=== PATIENT | female | born 1940 | race Caucasian/White ===

== ENCOUNTER 2016-12-17 20:04 | Emergency (ER) | payer OTHER ==
[2016-12-17 20:16] VITALS: TEMP 99.4; BMI 36.8
[2016-12-17] MEDS ORDERED: CLOPIDOGREL BISULFATE 300 MG TABLET PO ONE ×2 (20:20→20:44)
[2016-12-17] MEDS ORDERED: ASPIRIN 81 MG CHEWABLE TABLETS ONE (20:20)
[2016-12-17] MEDS ORDERED: ASPIRIN 81 MG CHEWABLE TABLETS PO ONE (20:20)
[2016-12-17] MEDS ORDERED: CLOPIDOGREL BISULFATE 300 MG TABLET ONE ×2 (20:21→20:45)
[2016-12-17] MEDS ORDERED: METOPROLOL TARTRATE 5 MG/5 ML VIAL IVPUSH ONE (20:29)
[2016-12-17] MEDS ORDERED: NITROGLYCERIN SUBLINGUAL 1/150 0.4 MG TAB SL ONE (20:29)
[2016-12-17] MEDS ORDERED: METOPROLOL TARTRATE 5 MG/5 ML VIAL ONE (20:31)
[2016-12-17 20:35] LABS: BASOPHIL 0.2 % (0-2.0); EOSINOPHIL 0.2 % (0-4.5); MCH 27.8 pg (25.7-33.7); MCHC 33.2 g/dl (32.0-36.0); MEAN CELL VOLUME 83.8 fl (80-96); MEAN PLT VOLUME 9.2 fl (7.5-11.1); NEUTROPHILS 79.4 % (42.8-82.8); PLATELET COUNT 169 K/MM3 (134-434); RDW 13.4 % (11.6-15.6); WHITE BLOOD COUNT 12.1 K/mm3 (4.0-10.0)
--- NOTE | 2016-12-17 20:41 | PDOC ---
History of Present Illness - General History Source: Patient Exam Limitations: No Limitations - History of Present Illness Initial Comments: 12/17/16 20:41 Patient is a 76 year old female with a significant past medical history of DM( diagnosed last month) and thyroid disease, who presents to the ED with complaint of chest pain since yesterday. Patient states that the chest pain has worsened since 1400 hour today, progressively worsening since yesterday. Patient reports associated SOB and pain radiating to her shoulders and lower back. Patient notes that the pain is 7-8/10 in severity. As per patient the her last bowel movement was today an hour before presenting to the ED and was normal. She denies fever, chills, nausea, vomiting, diarrhea, hematochezia or constipation. Allergy - penicillin <Morena Kearns - Last Filed: 12/17/16 20:41> <Kylah Salas - Last Filed: 12/18/16 03:43> - General Chief Complaint: Chest Pain Stated Complaint: CHEST PAIN Time Seen by Provider: 12/17/16 20:18 Past History <Morena Kearns - Last Filed: 12/17/16 20:41> - Past Medical History Diabetes: Yes HTN: Yes Thyroid Disease: Yes (Hypothyroidism) Other medical history: hx ovarian ca (2006) - Immunization History Immunization Up to Date: Yes - Psycho/Social/Smoking Cessation Hx Suicidal Ideation: No Smoking History: Never smoked Information on smoking cessation initiated: No Hx Alcohol Use: No Drug/Substance Use Hx: No Substance Use Type: None <Kylah Salas - Last Filed: 12/18/16 03:43> - Past Medical History Allergies/Adverse Reactions: Allergies Allergy/AdvReac Type Severity Reaction Status Date / Time Penicillins Allergy Verified 12/17/16 20:09 Home Medications: Ambulatory Orders Amlodipine Bes/Olmesartan Med [Amlodipine-Olmesartan 5-20 mg] 1 each PO DAILY Levothyroxine [Synthroid -] 50 mcg PO DAILY 12/17/16 Metformin Xr [Glucophage *Xr* -] 750 mg PO DAILY 12/17/16 Review of Systems - Review of Systems Able to Perform ROS?: Yes Comments:: 12/17/16 20:41 GENERAL/CONSTITUTIONAL: No fever or chills. No weakness. HEAD, EYES, EARS, NOSE AND THROAT: No change in vision. No ear pain or discharge. No sore throat. CARDIOVASCULAR: +chest pain, +shortness of breath. RESPIRATORY: No cough, wheezing, or hemoptysis. GASTROINTESTINAL: No nausea, vomiting, diarrhea or constipation. GENITOURINARY: No dysuria, frequency, or change in urination. MUSCULOSKELETAL: No joint or muscle swelling or pain. No neck or back pain. SKIN: No rash NEUROLOGIC: No headache, vertigo, loss of consciousness, or change in strength/ sensation. ENDOCRINE: No increased thirst. No abnormal weight change. HEMATOLOGIC/LYMPHATIC: No anemia, easy bleeding, or history of blood clots. ALLERGIC/IMMUNOLOGIC: No hives or skin allergy. <Morena Kearns - Last Filed: 12/17/16 20:41> *Physical Exam - Vital Signs Last Vital Signs Temp Pulse Resp BP Pulse Ox 99.4 F 79 27 H 154/72 100 12/17/16 20:09 12/17/16 20:40 12/17/16 20:40 12/17/16 20:40 12/17/16 20:40 - Physical Exam Comments: 12/17/16 20:42 GENERAL: Awake, alert, and fully oriented, +in moderate distress HEAD: No signs of trauma EYES: PERRLA, EOMI, sclera anicteric, conjunctiva clear ENT: Auricles normal inspection, hearing grossly normal, nares patent, oropharynx clear without exudates. Moist mucosa NECK: Normal ROM, supple, no lymphadenopathy, JVD, or masses LUNGS: Breath sounds equal, clear to auscultation bilaterally. No wheezes, and no crackles HEART: Regular rate and rhythm, normal S1 and S2, no murmurs, rubs or gallops ABDOMEN: Soft, nontender, normoactive bowel sounds. No guarding, no rebound. No masses EXTREMITIES: Normal range of motion, no edema. No clubbing or cyanosis. No cords, erythema, or tenderness NEUROLOGICAL: Cranial nerves II through XII grossly intact. Normal speech, normal gait SKIN: Warm, Dry, normal turgor, no rashes or lesions noted. <Morena Kearns - Last Filed: 12/17/16 20:41> - Vital Signs Last Vital Signs Temp Pulse Resp BP Pulse Ox 99.4 F 97 H 19 187/82 96 12/17/16 20:09 12/17/16 20:29 12/17/16 20:09 12/17/16 20:29 12/17/16 20:09 <Kylha Salas - Last Filed: 12/18/16 03:43> Heart Score/ECG Review #1 12/17/16 20:42 ECG was reviewed by Dr. Salas Impression: sinus rhythm wit 1st degree AV block with occasional premature ventricular complexes Possible left atrial enlargement Inferior infarct, possible acute Acute [place]/ STEMI Consider right ventricular involvement in acute inferior infarct Vent. rate 99 bpm VA interval 222 ms QRS duration 78 ms QT/QTc 354/454 ms <Morena Kearns - Last Filed: 12/17/16 20:41> ED Treatment Course - LABORATORY CBC & Chemistry Diagram: 12/17/16 20:30 12/17/16 20:30 - Medications Given in the ED: ED Medications Discontinued Medications Generic Name Dose Route Start Last Admin Trade Name Freq PRN Reason Stop Dose Admin Aspirin 162 mg 12/17/16 20:20 12/17/16 20:20 Asa - PO 12/17/16 20:21 162 mg ONCE ONE Administration Clopidogrel Bisulfate 300 mg 12/17/16 20:20 12/17/16 20:20 Plavix - PO 12/17/16 20:21 300 mg ONCE ONE Administration Metoprolol Tartrate 5 mg 12/17/16 20:29 12/17/16 20:29 Lopressor Injection - IVPUSH 12/17/16 20:30 5 mg ONCE ONE Administration Nitroglycerin 0.4 mg 12/17/16 20:29 12/17/16 20:29 Nitrostat - SL 12/17/16 20:30 0.4 mg ONCE ONE Administration <Morena Kearns - Last Filed: 12/17/16 20:41> - LABORATORY CBC & Chemistry Diagram: 12/17/16 20:30 12/17/16 20:30 - RADIOLOGY Radiology Studies Ordered: Category Date Time Status CXRPORT [CHEST X-RAY PORTABLE*] [RAD] Stat Radiology 12/17/16 20:19 Taken - Medications Given in the ED: ED Medications Discontinued Medications Generic Name Dose Route Start Last Admin Trade Name Freq PRN Reason Stop Dose Admin Aspirin 162 mg 12/17/16 20:20 12/17/16 20:20 Asa - PO 12/17/16 20:21 162 mg ONCE ONE Administration Clopidogrel Bisulfate 300 mg 12/17/16 20:20 12/17/16 20:20 Plavix - PO 12/17/16 20:21 300 mg ONCE ONE Administration Metoprolol Tartrate 5 mg 12/17/16 20:29 12/17/16 20:29 Lopressor Injection - IVPUSH 12/17/16 20:30 5 mg ONCE ONE Administration Nitroglycerin 0.4 mg 12/17/16 20:29 12/17/16 20:29 Nitrostat - SL 12/17/16 20:30 0.4 mg ONCE ONE Administration <Kylah Salas - Last Filed: 12/18/16 03:43> Medical Decision Making - Medical Decision Making 12/18/16 03:39 Pt comes with STEMI; I immediately called [facility]; pt was accepted by Dr. Rodriguez after he saw the EKG; pt was given asa, plavix and IV bolus heparin. SHe also received SL NTG x 1 and 5mg metoprolol IVP. Her BP and HR came down to 150 systolic and 79 respectively. [facility] arranged for transport and she was sent to the [facility]; EMS delay in getting patient out - otherwise our paper work and treatment was done expeditiously. Son signed patient's paperwork <Kylah Salas - Last Filed: 12/18/16 03:43> *DC/Admit/Observation/Transfer - Attestations Scribe Attestion: 12/17/16 20:44 Documentation prepared by MAGDALENA Ga, acting as bio medical technician for Kylah Salas MD. <Morena Kearns - Last Filed: 12/17/16 20:41> - Transfer to Acute Care Facility Receiving Facility: [facility] <Kylah Salas - Last Filed: 12/18/16 03:43> Diagnosis at time of Disposition: STEMI (ST elevation myocardial infarction) - Discharge Dispostion Disposition: TRANSFER ACUTE CARE/OTHER HOSP - Referrals Referrals: Dank Hatfield MD [Primary Care Provider] -
[2016-12-17] MEDS ORDERED: HEPARIN NA (PORCINE) 5,000 UNITS/ML 1ML VIAL IVPUSH PRN (20:43)
[2016-12-17] MEDS ORDERED: HEPARIN NA (PORCINE) 5,000 UNITS/ML 1ML VIAL ONE (20:45)
[2016-12-17 20:49] LABS: INR 1.03 (0.82-1.09); PROTHROMBIN TIME (PATIENT) 11.3 SEC (9.98-11.88)
[2016-12-17 20:51] LABS: ACTIVATED PTT 37.7 SECONDS (26.9-34.4)
[2016-12-17 21:24] VITALS: BP 154/72; PULSE 79
[2016-12-17 21:30] LABS: ALBUMIN 3.7 g/dl (3.4-5.0); ANION GAP 12 (8-16); CALCIUM 8.9 mg/dL (8.5-10.1); CO2 24 mmol/L (21-32); CREATININE 0.9 mg/dL (0.55-1.02); GLUCOSE,RANDOM 233 mg/dL (74-106); SGOT/AST 103 U/L (15-37); SGPT/ALT 38 U/L (12-78)
[2016-12-17 21:40] LABS: ALK PHOS 114 U/L (45-117); BILIRUBIN,TOTAL 0.3 mg/dL (0.2-1.0); TOT PROT 7.4 g/dl (6.4-8.2)
[2016-12-17 21:42] LABS: TROPONIN I 9.53 ng/ml (0.00-0.05)
--- NOTE | 2016-12-19 12:54 | EKG ---
Test Reason : Blood Pressure : / mmHG Vent. Rate : 099 BPM Atrial Rate : 099 BPM P-R Int : 222 ms QRS Dur : 078 ms QT Int : 354 ms P-R-T Axes : 073 -28 060 degrees QTc Int : 454 ms SINUS RHYTHM WITH 1ST DEGREE A-V BLOCK WITH OCCASIONAL PREMATURE VENTRICULAR COMPLEXES POSSIBLE LEFT ATRIAL ENLARGEMENT INFERIOR INFARCT , POSSIBLY ACUTE ACUTE SC / STEMI ABNORMAL ECG NO PREVIOUS ECGS AVAILABLE CLINICAL CORRELATION IS RECOMMENDED Confirmed by DELFINA PRASAD, PAULO ([id number]) on 12/19/2016 12:54:09 PM Referred By: Confirmed By:PAULO MATHIS MD
== END 2016-12-17 21:10 | disposition short-term general hospital (02) ==
LOC: JER 20:04
PROC: 3E033GC Introduction of Other Therapeutic Substance into Peripheral Vein, Percutaneous Approach (ICD-10-PCS; principal; 2016-12-17)
PROC: 3E033GC Introduction of Other Therapeutic Substance into Peripheral Vein, Percutaneous Approach (ICD-10-PCS; 2016-12-17)
DX: I21.19 ST elevation (STEMI) myocardial infarction involving other coronary artery of inferior wall (principal); I10 Essential (primary) hypertension; E11.9 Type 2 diabetes mellitus without complications; Z79.84 Long term (current) use of oral hypoglycemic drugs; E03.9 Hypothyroidism, unspecified; Z85.43 Personal history of malignant neoplasm of ovary
CPT/HCPCS: 36415; 71010-TC; 80053; 82550; 82553; 84484; 85025; 85610; 85730; 93005; 93010; 96374; 96375; 99285-25; J1644

== ENCOUNTER 2017-01-26 13:23 | Observation (INO) | payer OTHER ==
[2017-01-26 13:29] VITALS: BMI 35.3
[2017-01-26] MEDS ORDERED: ONDANSETRON 4 MG/2 ML VIAL IVPUSH ONE ×2 (17:32→23:31)
[2017-01-26] MEDS ORDERED: SODIUM CHLORIDE 500 ML IV STA (17:32)
[2017-01-26] MEDS ORDERED: ACETAMINOPHEN 325 MG TABLET (FP) PO ONE (17:33)
[2017-01-26] MEDS ORDERED: ONDANSETRON 4 MG/2 ML VIAL ONE ×2 (17:48→23:42)
[2017-01-26] MEDS ORDERED: ACETAMINOPHEN 325 MG TABLET (FP) ONE (17:48)
--- NOTE | 2017-01-26 17:51 | PDOC ---
History of Present Illness - General Chief Complaint: Nausea/Vomiting Stated Complaint: VOMITING Time Seen by Provider: 01/26/17 17:03 History Source: Patient, Family - History of Present Illness Timing/Duration: other Associated Symptoms: reports: fever/chills, malaise, nausea/vomiting, weakness. denies: chest pain, cough, diaphoresis, headaches, shortness of breath Past History - Past Medical History Allergies/Adverse Reactions: Allergies Allergy/AdvReac Type Severity Reaction Status Date / Time Penicillins Allergy Verified 01/26/17 13:27 Home Medications: Ambulatory Orders Metformin Xr [Glucophage *Xr* -] 750 mg PO BID 12/17/16 Aspirin [ASA -] 81 mg PO DAILY 01/26/17 Atorvastatin Ca [Lipitor] 80 mg PO HS 01/26/17 Carvedilol [Coreg -] 6.25 mg PO BID 01/26/17 Clopidogrel Bisulfate [Plavix -] 75 mg PO DAILY 01/26/17 Enalapril Maleate [Vasotec -] 2.5 mg PO DAILY 01/26/17 Nitrofurantoin Macrocrystal [Nitrofurantoin] 100 mg PO BID 01/26/17 Omeprazole 40 mg PO DAILY 01/26/17 Cardiac Disorders: Yes (ID) Diabetes: Yes HTN: Yes Thyroid Disease: Yes (Hypothyroidism) - Surgical History Cardiac Surgery: Yes (stents) - Immunization History Immunization Up to Date: Yes - Psycho/Social/Smoking Cessation Hx Suicidal Ideation: No Smoking History: Never smoked Hx Alcohol Use: No Drug/Substance Use Hx: No Substance Use Type: None Review of Systems - Review of Systems Constitutional: Yes: Chills, Fever Respiratory: No: Cough, Shortness of Breath Cardiac (ROS): No: Chest Pain, Lightheadedness, Palpitations ABD/GI: Yes: Nausea, Vomiting. No: Constipated, Diarrhea : No: Dysuria, Flank Pain, Hematuria *Physical Exam - Vital Signs Last Vital Signs Temp Pulse Resp BP Pulse Ox 102.4 F H 93 H 20 160/85 95 01/26/17 13:27 01/26/17 13:27 01/26/17 13:27 01/26/17 13:27 01/26/17 13:27 - Physical Exam General Appearance: Yes: Appropriately Dressed. No: Apparent Distress HEENT: positive: Normal Voice Neck: positive: Supple Respiratory/Chest: positive: Lungs Clear, Normal Breath Sounds. negative: Respiratory Distress Cardiovascular: positive: Regular Rate, S1, S2 Gastrointestinal/Abdominal: positive: Soft. negative: Tender Musculoskeletal: negative: CVA Tenderness Extremity: positive: Normal Inspection Integumentary: positive: Dry, Warm Neurologic: positive: Fully Oriented, Alert, Normal Mood/Affect ED Treatment Course - LABORATORY CBC & Chemistry Diagram: 01/27/17 06:30 01/27/17 06:30 - RADIOLOGY Radiology Studies Ordered: Category Date Time Status CHEST X-RAY PORTABLE* [RAD] Stat Radiology 01/26/17 17:31 Ordered Medical Decision Making - Medical Decision Making 01/26/17 17:46 76 yo F, hypothyroid, DM, CAD w/ stents x 3, last places a month ago at [facility], p/w intermittent n/v that has been present since stents were placed and more frequent now. Is able to tolerate po for the most part. Pt states she thinks one of her new cardiac meds may be causing her sxs but has not f/u with her cardiology to discuss issue. Now c/o malaise, weakness and ? fever. No CP, SOB, cough, abd pain, change in BM or dysuria see exam Intermittent n/v x ~1 month No acute GI sxs and no CP or SOB R/o infectious given fever at triage vs metabolic vs cardiac Febrile at triage w/ unremarkable exam otherwise -ekg -labs -love-cx -IVF -tylenol -admission likely 01/26/17 17:52 *DC/Admit/Observation/Transfer Diagnosis at time of Disposition: Fever, Intractable nausea and vomiting - Discharge Dispostion Condition at time of disposition: Guarded
[2017-01-26 18:29] LABS: BASOPHIL 0.2 % (0-2.0); EOSINOPHIL 1.2 % (0-4.5); MCH 27.9 pg (25.7-33.7); MCHC 33.3 g/dl (32.0-36.0); MEAN CELL VOLUME 83.8 fl (80-96); MEAN PLT VOLUME 9.4 fl (7.5-11.1); NEUTROPHILS 76.9 % (42.8-82.8); PLATELET COUNT 166 K/MM3 (134-434); RDW 14.1 % (11.6-15.6); WHITE BLOOD COUNT 7.6 K/mm3 (4.0-10.0)
[2017-01-26 18:46] LABS: URINE APPEARANCE CLEAR; URINE BILIRUBIN NEGATIVE (NEGATIVE); URINE BLOOD NEGATIVE (NEGATIVE); URINE COLOR YELLOW; URINE GLUCOSE (UA) NEGATIVE (NEGATIVE); URINE KETONE NEGATIVE (NEGATIVE); URINE LEUK ESTERASE NEGATIVE (NEGATIVE); URINE NITRITE NEGATIVE (NEGATIVE); URINE UROBILINOGEN NEGATIVE E.U./dl (0.2-1.0)
[2017-01-26 19:20] LABS: URINE PROTEIN 1+ (NEGATIVE)
[2017-01-26 20:38] LABS: URINE BACTERIA RARE /hpf (NONE SEEN); URINE HYALINE CAST 1 /lpf; URINE MUCUS FEW; URINE RBC 1 /hpf (0-3); URINE WBC 3 /hpf (3-5)
[2017-01-26 21:33] LABS: ALBUMIN 3.2 g/dl (3.4-5.0); BILIRUBIN,TOTAL 0.6 mg/dL (0.2-1.0); CALCIUM 8.3 mg/dL (8.5-10.1); COCKROFT - GAULT 60.911; TOT PROT 6.2 g/dl (6.4-8.2)
--- NOTE | 2017-01-26 21:48 | PDOC ---
*Physical Exam - Vital Signs Last Vital Signs Temp Pulse Resp BP Pulse Ox 99.8 F H 72 18 149/66 98 01/26/17 19:23 01/26/17 19:23 01/26/17 19:23 01/26/17 19:23 01/26/17 19:23 - Physical Exam Comments: 01/26/17 21:49 76-year-old female with a history of DM, hypothyroidism, CAD with stents 3 which were placed at [facility] 1 month ago. Presents to the emergency department with her daughter complaining of intractable nausea/vomiting 4 weeks , worse over the past 2 weeks. Patient awoke today feeling extremely weak and tired with a subjective fever. Patient denies any headache, dizziness, lightheadedness, neck pains, back pains, chest pain, shortness of breath, abdominal pains, urinary symptoms. ED Treatment Course - LABORATORY CBC & Chemistry Diagram: 01/26/17 18:00 01/26/17 20:42 - ADDITIONAL ORDERS Additional order review: Laboratory Results 01/26/17 01/26/17 01/26/17 20:42 18:00 18:00 Sodium 138 Potassium 3.9 Chloride 103 Carbon Dioxide 27 Anion Gap 8 BUN 24 H Creatinine 1.0 Creat Clearance w eGFR 54.05 Random Glucose 136 H D Lactic Acid 1.9 Calcium 8.3 L Total Bilirubin 0.6 D AST 19 D ALT 21 D Alkaline Phosphatase 98 Creatine Kinase Troponin I B-Natriuretic Peptide 2996.08 H Total Protein 6.2 L Albumin 3.2 L Urine Color Urine Appearance Urine pH Ur Specific [place] Urine Protein Urine Glucose (UA) Urine Ketones Urine Blood Urine Nitrite Urine Bilirubin Urine Urobilinogen Ur Leukocyte Esterase Urine RBC Urine WBC Ur Epithelial Cells Urine Bacteria Hyaline Casts Urine Mucus 01/26/17 01/26/17 18:00 18:00 Sodium Cancelled Potassium Cancelled Chloride Cancelled Carbon Dioxide Cancelled Anion Gap Cancelled BUN Cancelled Creatinine Cancelled Creat Clearance w eGFR Cancelled Random Glucose Cancelled Lactic Acid Calcium Cancelled Total Bilirubin Cancelled AST Cancelled ALT Cancelled Alkaline Phosphatase Cancelled Creatine Kinase Cancelled Troponin I Cancelled B-Natriuretic Peptide Total Protein Cancelled Albumin Cancelled Urine Color Yellow Urine Appearance Clear Urine pH 5.0 Ur Specific [place] 1.015 Urine Protein 1+ H Urine Glucose (UA) Negative Urine Ketones Negative Urine Blood Negative Urine Nitrite Negative Urine Bilirubin Negative Urine Urobilinogen Negative Ur Leukocyte Esterase Negative Urine RBC 1 Urine WBC 3 Ur Epithelial Cells Rare Urine Bacteria Rare Hyaline Casts 1 Urine Mucus Few 01/26/17 20:43 Influenza Types A,B Antigen (PEGGY) - Final Nasopharyngeal Swab - Final 01/26/17 18:00 RBC 4.82 MCV 83.8 MCHC 33.3 RDW 14.1 MPV 9.4 Neutrophils % 76.9 Lymphocytes % 15.7 Monocytes % 6.0 Eosinophils % 1.2 D Basophils % 0.2 - RADIOLOGY Radiology Studies Ordered: 01/26/17 21:52 CONSTITUTIONAL: + fever, chills, generalized weakness, malaise Absent:diaphoresis, loss of appetite HEENT: Absent: rhinorrhea, nasal congestion, throat pain, throat swelling, difficulty swallowing, mouth swelling, ear pain, eye pain, visual Changes CARDIOVASCULAR: Absent: chest pain, loss of consciousness, palpitations, irregular heart rate, peripheral edema RESPIRATORY: Absent: cough, shortness of breath, dyspnea with exertion, orthopnea, wheezing, stridor, hemoptysis GASTROINTESTINAL: Absent: abdominal pain, abdominal distension, nausea, vomiting, diarrhea, constipation, melena, hematochezia GENITOURINARY: Absent: dysuria, frequency, urgency, hesitancy, hematuria, flank pain, genital pain MUSCULOSKELETAL: Absent: myalgia, arthralgia, joint swelling SKIN: Absent: rash, itching, pallor HEMATOLOGIC/IMMUNOLOGIC: Absent: easy bleeding, easy bruising, lymphadenopathy, frequent infections ENDOCRINE: Absent: unexplained weight gain, unexplained weight loss, heat intolerance, cold intolerance NEUROLOGIC: Absent: headache, focal weakness or paresthesias, dizziness, unsteady gait, seizure, mental status changes, bladder or bowel incontinence PSYCHIATRIC: Absent: anxiety, depression, suicidal or homicidal ideation, hallucinations. - Medications Given in the ED: ED Medications Discontinued Medications Generic Name Dose Route Start Last Admin Trade Name Freq PRN Reason Stop Dose Admin Acetaminophen 650 mg 01/26/17 17:33 01/26/17 17:59 Tylenol - PO 01/26/17 17:34 650 mg ONCE ONE Administration Sodium Chloride 500 mls @ 1,000 mls/hr 01/26/17 17:32 01/26/17 18:10 Normal Saline - IV 01/26/17 18:01 1,000 mls/hr ASDIR STA Administration Ondansetron HCl 4 mg 01/26/17 17:32 01/26/17 18:10 Zofran Injection IVPUSH 01/26/17 17:33 4 mg ONCE ONE Administration Progress Note - Progress Note Progress Note: 2147htrs: Called DR. Hatfield [phone]/pt's PMD 2209hrs: Spoke to Dr. Hatfield/req admit to Hospitalist *DC/Admit/Observation/Transfer Diagnosis at time of Disposition: Fever Qualifiers: Fever type: unspecified Qualified Code(s): R50.9 - Fever, unspecified Intractable nausea and vomiting Qualifiers: Vomiting type: unspecified Qualified Code(s): R11.2 - Nausea with vomiting, unspecified - Discharge Dispostion Condition at time of disposition: Guarded Admit: Yes - Referrals Referrals: Dank Hatfield MD [Primary Care Provider] -
--- NOTE | 2017-01-26 22:28 | HP ---
CHIEF COMPLAINT: ' i throw up often" PCP: Dr Hatfield HISTORY OF PRESENT ILLNESS: This is a 76 yo F with PMH of [place] s/p 3 stents [facility] 1 mo ago, CAD, NIDDM2, hypothyroidism (not on meds x 1 mo) and ovarian ca s/o total hysterectomy and oophorectomy 25 yrs ago, who presents with nternittant vomiting that started immediately after cardiac cath. She had 1 stent placed 1 mo ago and another 2 placed 2 w ago at [facility]. The vomiting has become more frequent over the past 2 weeks. She has been recently having up to 3 episodes/day, NBNB, not associated with nausea or abd pain, and usually occurring shortly after PO intake. She denies diarrhea, constipation, melena, hematochezia. 1 w ago she developed pelvic pain and dysuria and was started on Nitrofurantoin (compliant). Her symptoms did not resolve and today she reports subjective fever. She was taken off her synthroid 50 d after her first cardiac cath 1 mo ago and is unsure why. She has a normal colonoscopy and endoscopy 3 yrs ago. 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), CXR (3)zofran, ivf, tylenol Recent Travel: denies PAST MEDICAL HISTORY: as above PAST SURGICAL HISTORY: as above Social History: lives at home with Smoking: denies Alcohol:denies Drugs: denies Family History: cad Allergies Penicillins Allergy (Verified 01/26/17 13:27) HOME MEDICATIONS: Home Medications Medication Instructions Recorded Metformin Xr [Glucophage *Xr* -] 750 mg PO BID 12/17/16 Aspirin [ASA -] 81 mg PO DAILY 01/26/17 Atorvastatin Ca [Lipitor] 80 mg PO HS 01/26/17 Carvedilol [Coreg -] 6.25 mg PO BID 01/26/17 Clopidogrel Bisulfate [Plavix -] 75 mg PO DAILY 01/26/17 Enalapril Maleate [Vasotec -] 2.5 mg PO DAILY 01/26/17 Nitrofurantoin Macrocrystal 100 mg PO BID 01/26/17 [Nitrofurantoin] Omeprazole 40 mg PO DAILY 01/26/17 REVIEW OF SYSTEMS CONSTITUTIONAL: Absent: chills, diaphoresis, generalized weakness, malaise, loss of appetite, weight change HEENT: Absent: rhinorrhea, nasal congestion, throat pain CARDIOVASCULAR: Absent: chest pain, syncope, palpitations, irregular heart rate, lightheadedness , peripheral edema RESPIRATORY: Absent: cough, shortness of breath, dyspnea with exertion, orthopnea, wheezing, stridor, hemoptysis GASTROINTESTINAL: Absent: abdominal pain, abdominal distension, nausea, diarrhea, constipation, melena, hematochezia GENITOURINARY: Absent: hematuria, flank pain, genital pain MUSCULOSKELETAL: Absent: myalgia, arthralgia SKIN: Absent: rash, itching, pallor HEMATOLOGIC/IMMUNOLOGIC: Absent: easy bleeding, easy bruising, lymphadenopathy, frequent infections ENDOCRINE: Absent: unexplained weight gain, unexplained weight loss, heat intolerance, cold intolerance NEUROLOGIC: Absent: headache, focal weakness or paresthesias, dizziness, unsteady gait PSYCHIATRIC: Absent: anxiety, depression PHYSICAL EXAMINATION Vital Signs - 24 hr 01/26/17 01/26/17 13:27 19:23 Temperature 102.4 F H 99.8 F H Pulse Rate 93 H Pulse Rate [ 72 Right Radial] Respiratory 20 18 Rate Blood Pressure 160/85 Blood Pressure 149/66 [Left Arm] O2 Sat by Pulse 95 98 Oximetry (%) GENERAL: Awake, alert, and fully oriented, in no acute distress. HEAD: Normal with no signs of trauma. EYES: Pupils equal, round and reactive to light, extraocular movements intact, sclera anicteric, conjunctiva clear. No lid lag. EARS, NOSE, THROAT: Ears normal, nares patent, oropharynx clear without exudates. Moist mucous membranes. NECK: supple without lymphadenopathy, JVD. + thyromegaly LUNGS: Breath sounds equal, clear to auscultation bilaterally. HEART: Regular rate and rhythm, normal S1 and S2 ABDOMEN: Soft, mildly tender suprapubic, mildy distended, normoactive bowel sounds, no guarding, no rebound, no masses. No hepatomegaly or splenomegaly. hardened tissues in lower quadrants MUSCULOSKELETAL: No CVA tenderness. UPPER EXTREMITIES: 2+ pulses, warm, well-perfused. No cyanosis. No clubbing. No peripheral edema. LOWER EXTREMITIES: 2+ pulses, warm, well-perfused. No calf tenderness. No peripheral edema. NEUROLOGICAL: Cranial nerves II-XII grossly intact. Normal speech. Normal gait. PSYCHIATRIC: Cooperative. Good eye contact. Appropriate mood and affect. SKIN: Warm, dry Laboratory Results - last 24 hr 01/26/17 01/26/17 01/26/17 18:00 18:00 18:00 WBC 7.6 D RBC 4.82 Hgb 13.4 Hct 40.4 MCV 83.8 MCHC 33.3 RDW 14.1 Plt Count 166 MPV 9.4 Neutrophils % 76.9 Lymphocytes % 15.7 Monocytes % 6.0 Eosinophils % 1.2 D Basophils % 0.2 Sodium Cancelled Potassium Cancelled Chloride Cancelled Carbon Dioxide Cancelled Anion Gap Cancelled BUN Cancelled Creatinine Cancelled Creat Clearance w eGFR Cancelled Random Glucose Cancelled Lactic Acid Calcium Cancelled Total Bilirubin Cancelled AST Cancelled ALT Cancelled Alkaline Phosphatase Cancelled Creatine Kinase Cancelled Troponin I Cancelled B-Natriuretic Peptide Total Protein Cancelled Albumin Cancelled Urine Color Yellow Urine Appearance Clear Urine pH 5.0 Ur Specific [place] 1.015 Urine Protein 1+ H Urine Glucose (UA) Negative Urine Ketones Negative Urine Blood Negative Urine Nitrite Negative Urine Bilirubin Negative Urine Urobilinogen Negative Ur Leukocyte Esterase Negative Urine RBC 1 Urine WBC 3 Ur Epithelial Cells Rare Urine Bacteria Rare Hyaline Casts 1 Urine Mucus Few 01/26/17 01/26/17 01/26/17 18:00 18:00 20:42 WBC RBC Hgb Hct MCV MCHC RDW Plt Count MPV Neutrophils % Lymphocytes % Monocytes % Eosinophils % Basophils % Sodium 138 Potassium 3.9 Chloride 103 Carbon Dioxide 27 Anion Gap 8 BUN 24 H Creatinine 1.0 Creat Clearance w eGFR 54.05 Random Glucose 136 H D Lactic Acid 1.9 Calcium 8.3 L Total Bilirubin 0.6 D AST 19 D ALT 21 D Alkaline Phosphatase 98 Creatine Kinase Troponin I B-Natriuretic Peptide 2996.08 H Total Protein 6.2 L Albumin 3.2 L Urine Color Urine Appearance Urine pH Ur Specific [place] Urine Protein Urine Glucose (UA) Urine Ketones Urine Blood Urine Nitrite Urine Bilirubin Urine Urobilinogen Ur Leukocyte Esterase Urine RBC Urine WBC Ur Epithelial Cells Urine Bacteria Hyaline Casts Urine Mucus ASSESSMENT/PLAN: This is a 76 yo F with PMH of [place] s/p 3 stents [facility] 1 mo ago, CAD, NIDDM2, hypothyroidism (not on meds x 1 mo) and ovarian ca s/o total hysterectomy and oophorectomy 25 yrs ago, who presents with nternittant vomiting that started immediately after cardiac cath. vomiting -r/o gastritis (on asa x 1 mo), obstruction (pmh abd belén) vs side effects of cardiac cath -KUB -protonix -zofran prn UTI -fever 102.4 on admission, wbc 7.6 -on macrobid for 1 w w/o symptom resolution -UA negative consistent with 1w of abx; u culture p/d -pt allergic to Pen, will give one dose levaquin CAD s/p [place] 1 mo ago s/p 3 stents -asa, plavix -coreg, vasotec -lipitor 80 hs -cardiac monitoring -call [facility] for BNP baseline (3000 here) and TTE -trop -cortisol urine Hypothyroid -may have stopped synthroid by mistake -start old dose synthroid 50 d -TFTs NIDDM -hold metformin 750 bid -bgm achs -sliding scale FEN NS @75 (slight vol depletion) lytes stable Dm diet SCDs Dispo: obs tele Problem List - Problem (1) Fever Code(s): R50.9 - FEVER, UNSPECIFIED Qualifiers: Fever type: unspecified Qualified Code(s): R50.9 - Fever, unspecified (2) Intractable nausea and vomiting Code(s): R11.2 - NAUSEA WITH VOMITING, UNSPECIFIED Qualifiers: Vomiting type: unspecified Qualified Code(s): R11.2 - Nausea with vomiting, unspecified (3) UTI (urinary tract infection) Code(s): N39.0 - URINARY TRACT INFECTION, SITE NOT SPECIFIED (4) CAD (coronary artery disease) Code(s): I25.10 - ATHSCL HEART DISEASE OF [place] CORONARY ARTERY W/O ANG PCTRS (5) History of myocardial infarction less than 8 weeks Code(s): [id number] - Visit type - Emergency Visit Emergency Visit: Yes ED Registration Date: 01/26/17 Care time: The patient presented to the Emergency Department on the above date and was hospitalized for further evaluation of their emergent condition. - New Patient This patient is new to me today: Yes Date on this admission: 01/27/17 - Critical Care Critical Care patient: No
--- NOTE | 2017-01-26 22:32 | PN ---
<Mary Lou Christianson - Last Filed: 01/26/17 22:25> Teaching Attending Note Name of Resident: Christinerizwana Beasley <Landen Cummins - Last Filed: 01/27/17 00:10> Teaching Attending Note ATTENDING PHYSICIAN STATEMENT I saw and evaluated the patient. I reviewed the resident's note and discussed the case with the resident. I agree with the resident's findings and plan as documented. SUBJECTIVE: 76 year old female presenting with her daughter, with significant past medical history of diabetes mellitus, hypothyroidism, CAD, MT with stents (x3). The stents were placed at [facility] 1 month ago after an MT. Since the stent placement the patient has been having intractable nausea with vomiting for the past 3 weeks. She notes that for the past 2 weeks the symptoms have worsened, awakening today feeling tired and complaining of a subjective fever. She currently denies chest pain, shortness of breath and lightheadedness. The patient was diagnosed last week with a UTI and was prescribed Nitrofurantoin, which she has been taking for the past week. The patient is of Syriac decent and the patient was communicating in her primary language during assessment. OBJECTIVE: GENERAL: Awake, alert, and fully oriented, in no acute distress HEENT: Atraumatic. PERRLA, EOMI. Moist mucosa. No JVD LUNGS: No distress, speaks full sentences, clear to auscultation bilaterally HEART: Regular rate and rhythm, normal S1 and S2, no murmurs, rubs or gallops, peripheral pulses normal and equal bilaterally. ABDOMEN: (+) Hypoactive bowel sounds on the left side. Distended, obese. Soft, nontender. No guarding, no rebound. No masses EXTREMITIES: Normal inspection, Normal range of motion, no edema. No clubbing or cyanosis. NEUROLOGICAL: Cranial nerves II through XII grossly intact. Normal speech, normal gait, no focal sensorimotor deficits SKIN: Warm, Dry, normal turgor, no rashes or lesions noted. She tends to use a lot of abbreviations, here are some common ones: CBCD WBC 7.6 K/mm3 (4.0-10.0) D 01/26/17 18:00 RBC 4.82 M/mm3 (3.60-5.2) 01/26/17 18:00 Hgb 13.4 GM/dL (10.7-15.3) 01/26/17 18:00 Hct 40.4 % (32.4-45.2) 01/26/17 18:00 MCV 83.8 fl (80-96) 01/26/17 18:00 MCHC 33.3 g/dl (32.0-36.0) 01/26/17 18:00 RDW 14.1 % (11.6-15.6) 01/26/17 18:00 Plt Count 166 K/MM3 (134-434) 01/26/17 18:00 MPV 9.4 fl (7.5-11.1) 01/26/17 18:00 CMP Sodium 138 mmol/L (136-145) 01/26/17 20:42 Potassium 3.9 mmol/L (3.5-5.1) 01/26/17 20:42 Chloride 103 mmol/L (98-107) 01/26/17 20:42 Carbon Dioxide 27 mmol/L (21-32) 01/26/17 20:42 Anion Gap 8 (8-16) 01/26/17 20:42 BUN 24 mg/dL (7-18) H 01/26/17 20:42 Creatinine 1.0 mg/dL (0.55-1.02) 01/26/17 20:42 Creat Clearance w eGFR 54.05 (>60) 01/26/17 20:42 Calcium 8.3 mg/dL (8.5-10.1) L 01/26/17 20:42 Total Bilirubin 0.6 mg/dL (0.2-1.0) D 01/26/17 20:42 AST 19 U/L (15-37) D 01/26/17 20:42 ALT 21 U/L (12-78) D 01/26/17 20:42 Alkaline Phosphatase 98 U/L (45-117) 01/26/17 20:42 Total Protein 6.2 g/dl (6.4-8.2) L 01/26/17 20:42 Albumin 3.2 g/dl (3.4-5.0) L 01/26/17 20:42 Chest X-Ray Reviewed by: Dr. Enrike Tovar Impression: Cardiomegaly, no acute pathology or significant change. ASSESSMENT AND PLAN Intractable vomiting, rule out acute gastroenteritis versus obstruction versus angina - NPO, advanced diet as tolerated in AM - IVF - Restart on PPIs - Zofran 4 mg Q4 hours PRN - X-ray abdomen - Trend troponins - Contact [facility] records for Echocardiogram and patients admission - Continue home meds; metformin, insulin sliding scale, ACHS Recent UTI with continuing Dysuria - Stat does of Ceftriaxone DVT proholaxyse - Heparin 5,000 units S/Q TID Documentation prepared by Landen Cummins, acting as biomedical engineering technician for Mary Lou Christianson MD.
[2017-01-26] MEDS ORDERED: CEFTRIAXONE 1,000 MG in DEXTROSE 5%-WATER - 50 ML IVPB ONE (23:30)
[2017-01-26] MEDS ORDERED: ACETAMINOPHEN 325 MG TABLET (FP) PO PRN (23:35)
[2017-01-26] MEDS ORDERED: LEVOFLOXACIN 750 MG IVPB 150 ML IVPB ONE (23:41)
[2017-01-26] MEDS ORDERED: CEFTRIAXONE 50 ML ONE (23:42)
[2017-01-27] MEDS: SODIUM CHLORIDE 1,000 ML IV SCH ×2 (00:01→03:54)
[2017-01-27] MEDS ORDERED: LEVOFLOXACIN 750 MG IVPB 150 ML IVPB ONE (00:03)
[2017-01-27 01:49] LABS: TROPONIN I 0.02 ng/ml (0.00-0.05)
[2017-01-27 02:07] LABS: FREE T4 0.85 ng/dl (0.76-1.46); THYROID STIMULATING HORMONE 2.55 uIU/ml (0.358-3.74)
[2017-01-27] MEDS: LEVOTHYROXINE NA 50 MCG TABLET (FP) PO SCH (06:32)
[2017-01-27] MEDS: INSULIN SLIDING SCALE (NOVOLOG) 1 VIAL SQ SCH ×4 (06:32→21:52)
[2017-01-27 07:50] LABS: MCH 28.6 pg (25.7-33.7); MCHC 34.3 g/dl (32.0-36.0); MEAN CELL VOLUME 83.4 fl (80-96); PLATELET COUNT 108 K/MM3 (134-434); RDW 14.2 % (11.6-15.6); WHITE BLOOD COUNT 4.7 K/mm3 (4.0-10.0)
[2017-01-27 08:11] LABS: CALCIUM 8.3 mg/dL (8.5-10.1); COCKROFT - GAULT 67.9065; CREATININE 0.9 mg/dL (0.55-1.02); PHOSPHOROUS 2.9 mg/dL (2.5-4.9)
[2017-01-27 08:24] LABS: MAGNESIUM 1.8 mg/dL (1.8-2.4)
--- NOTE | 2017-01-27 09:18 | PN ---
Physical Exam: SUBJECTIVE: Patient seen and examined Patient is comfortable with no acute distress. No nausea or vomiting. OBJECTIVE: Vital Signs Temperature 98.7 F 01/27/17 06:00 Pulse Rate 75 01/27/17 06:00 Respiratory Rate 18 01/27/17 06:00 Blood Pressure 152/69 01/27/17 06:00 O2 Sat by Pulse Oximetry (%) 97 01/27/17 03:39 GENERAL: The patient is awake, alert, and fully oriented, in no acute distress. HEAD: Normal with no signs of trauma. EYES: PERRL, extraocular movements intact, sclera anicteric, conjunctiva clear. No ptosis. ENT: Ears normal, oropharynx clear without exudates, moist mucous membranes. NECK: Trachea midline, full range of motion, supple. LUNGS: Breath sounds equal, clear to auscultation bilaterally, no wheezes, no crackles, no accessory muscle use. HEART: Regular rate and rhythm, S1, S2 psotive, Rebeca 2/6 , no rub or gallop. ABDOMEN: RUQ mild tenderness, Soft, large abdomen , no guarding, no rebound , no hepatosplenomegaly. EXTREMITIES: 2+ pulses, warm, well-perfused, no edema. NEUROLOGICAL: Cranial nerves II through XII grossly intact. Normal speech. PSYCH: Normal mood, normal affect. SKIN: Warm, dry, normal turgor, no rashes or lesions noted CBCD WBC 4.7 K/mm3 (4.0-10.0) D 01/27/17 06:30 RBC 4.25 M/mm3 (3.60-5.2) 01/27/17 06:30 Hgb 12.1 GM/dL (10.7-15.3) 01/27/17 06:30 Hct 35.4 % (32.4-45.2) 01/27/17 06:30 MCV 83.4 fl (80-96) 01/27/17 06:30 MCHC 34.3 g/dl (32.0-36.0) 01/27/17 06:30 RDW 14.2 % (11.6-15.6) 01/27/17 06:30 Plt Count 108 K/MM3 (134-434) L D 01/27/17 06:30 MPV 9.0 fl (7.5-11.1) 01/27/17 06:30 CMP Sodium 142 mmol/L (136-145) 01/27/17 06:30 Potassium 4.6 mmol/L (3.5-5.1) 01/27/17 06:30 Chloride 104 mmol/L (98-107) 01/27/17 06:30 Carbon Dioxide 29 mmol/L (21-32) 01/27/17 06:30 Anion Gap 9 (8-16) 01/27/17 06:30 BUN 17 mg/dL (7-18) D 01/27/17 06:30 Creatinine 0.9 mg/dL (0.55-1.02) 01/27/17 06:30 Creat Clearance w eGFR 54.05 (>60) 01/26/17 20:42 Random Glucose 134 mg/dL (74-106) H 01/27/17 06:30 Calcium 8.3 mg/dL (8.5-10.1) L 01/27/17 06:30 Total Bilirubin 0.6 mg/dL (0.2-1.0) D 01/26/17 20:42 AST 19 U/L (15-37) D 01/26/17 20:42 ALT 21 U/L (12-78) D 01/26/17 20:42 Alkaline Phosphatase 98 U/L (45-117) 01/26/17 20:42 Total Protein 6.2 g/dl (6.4-8.2) L 01/26/17 20:42 Albumin 3.2 g/dl (3.4-5.0) L 01/26/17 20:42 CARDIAC ENZYMES Creatine Kinase Cancelled 01/26/17 18:00 Troponin I 0.02 ng/ml (0.00-0.05) 01/26/17 20:42 Active Medications Generic Name Dose Route Start Last Admin Trade Name Freq PRN Reason Stop Dose Admin Acetaminophen 650 mg 01/26/17 23:35 Tylenol - PO Q4H PRN FEVER OR PAIN Aspirin 81 mg 01/27/17 10:00 Asa - PO DAILY [facility] Atorvastatin Calcium 80 mg 01/27/17 22:00 Lipitor - PO HS [facility] Carvedilol 6.25 mg 01/27/17 10:00 Coreg - PO BID [facility] Clopidogrel Bisulfate 75 mg 01/27/17 10:00 Plavix - PO DAILY R[facility] Enalapril Maleate 2.5 mg 01/27/17 10:00 Vasotec - PO DAILY RY Sodium Chloride 1,000 mls @ 75 mls/hr 01/26/17 23:45 01/27/17 03:54 Normal Saline - IV 75 mls/hr ASDIR RY Administration Insulin Aspart 1 vial 01/27/17 07:00 01/27/17 06:32 Novolog Vial Sliding Scale - SQ Not Given ACHS RY Protocol Levothyroxine Sodium 50 mcg 01/27/17 07:00 01/27/17 06:32 Synthroid - PO 50 mcg AM RY Administration Pantoprazole Sodium 40 mg 01/27/17 10:00 Protonix - PO DAILY RY ASSESSMENT/PLAN: This is a 76 yo F with PMH of [place] s/p 3 stents [facility] 1 mo ago, CAD, NIDDM2, hypothyroidism (not on meds x 1 mo) and ovarian ca s/o total hysterectomy and oophorectomy 25 yrs ago, who presents with intermitant vomiting that started immediately after cardiac cath. # Acute vomiting improved. # Acute UTI, presented with fever of 102.4 and wbc 7.6 s/p IV Levaquin x 1 dose UA negative negative so far. s/p 1w of abx; u culture p/d pt allergic to Pen, s/p one dose levaquin IV # CAD s/p [place] 1 mo ago s/p 3 stents on asa, plavix, coreg, vasotec,lipitor 80 hs ,BNP (3000 here) , echo. Cardio consult appreciated. elevated BNP given one dose of IV lasix. # HTN uncontrolled continue home meds, will give one dose of Lasix # Hypothyroid continue levoxyl #T2DM hold metformin 750 bid , bgm achs, sliding scale DVT Px: heparin sq Visit type - Emergency Visit Emergency Visit: Yes ED Registration Date: 01/26/17 Care time: The patient presented to the Emergency Department on the above date and was hospitalized for further evaluation of their emergent condition. - New Patient This patient is new to me today: Yes Date on this admission: 01/27/17 - Critical Care Critical Care patient: No
[2017-01-27] MEDS: ENALAPRIL MALEATE 2.5 MG TABLET (FP) PO SCH (09:36)
[2017-01-27] MEDS: CLOPIDOGREL BISULFATE 75 MG TABLET (FP) PO SCH (09:36)
[2017-01-27] MEDS: CARVEDILOL 6.25 MG TABLET (FP) PO SCH ×2 (09:36→21:52)
[2017-01-27] MEDS ORDERED: PANTOPRAZOLE 40 MG TABLET (FP) PO SCH (10:00)
[2017-01-27] MEDS ORDERED: ASPIRIN 81 MG CHEWABLE TABLETS PO SCH (10:00)
[2017-01-27] MEDS ORDERED: FUROSEMIDE 40 MG/4 ML INJECTABLE VIAL IVPB ONE (13:30)
--- NOTE | 2017-01-27 13:43 | CON.CARD ---
Consult Consult Specialty:: Cardiology Referred by:: Bill Reason for Consultation:: CAD, elevated bnp - History of Present Illness Chief Complaint: abd pain, vomiting. History of Present Illness: 76f history of htn, niddm, chol, hypothyroidism, recent STEMI at [facility] transferred to [facility] for urgent cath 12/17/16 s/p [place] to OM3, then staged [place] to LAD and PTCA of D2 12/27/16 now admitted with abdominal pain and vomiting without blood or bile. No chest pain, sob, orthopnea, pnd or edema. Exercise tolerance is good. No angina. Noted with abnormal bnp. Echo at [facility] 12/18/16 normal ef, no wall motion abnormalities, mild mr minimal tr , aortic sclerosis. No bnp was drawn at [facility]. - History Source History Provided By: Patient, Medical Record ([facility] records reviewed as well) Limitations to Obtaining History: Language Barrier - Past Medical History ...: No - Alcohol/Substance Use Hx Alcohol Use: No - Smoking History Smoking history: Never smoked Home Medications - Allergies Allergies/Adverse Reactions: Allergies Allergy/AdvReac Type Severity Reaction Status Date / Time Penicillins Allergy Verified 01/26/17 13:27 - Home Medications Home Medications: Ambulatory Orders Metformin Xr [Glucophage *Xr* -] 750 mg PO BID 12/17/16 Aspirin [ASA -] 81 mg PO DAILY 01/26/17 Atorvastatin Ca [Lipitor] 80 mg PO HS 01/26/17 Carvedilol [Coreg -] 6.25 mg PO BID 01/26/17 Clopidogrel Bisulfate [Plavix -] 75 mg PO DAILY 01/26/17 Enalapril Maleate [Vasotec -] 2.5 mg PO DAILY 01/26/17 Nitrofurantoin Macrocrystal [Nitrofurantoin] 100 mg PO BID 01/26/17 Omeprazole 40 mg PO DAILY 01/26/17 - Risk Factors Known Risk Factors: Yes: Diabetes Mellitus, Hypercholesterolemia, Hypertension, Prior AL /Emb Stroke Vital Signs: Vital Signs Temperature 98 F 01/27/17 10:00 Pulse Rate 72 01/27/17 10:00 Respiratory Rate 18 01/27/17 10:00 Blood Pressure 155/78 01/27/17 10:00 O2 Sat by Pulse Oximetry (%) 97 01/27/17 03:39 Constitutional: Yes: No Distress, Calm Eyes: Yes: Conjunctiva Clear, EOM Intact HENT: Yes: Atraumatic, Normocephalic Neck: Yes: Supple, Trachea Midline Respiratory: Yes: CTA Bilaterally Gastrointestinal: Yes: Normal Bowel Sounds, Soft Cardiovascular: Yes: Regular Rate and Rhythm JVD: No Carotid Bruit: No PMI: Non-Displaced Heart Sounds: Yes: S1, S2 Edema: No Peripheral Pulses WNL: Yes - Other Data Labs, Other Data: CBC, BMP 01/27/17 06:30 01/27/17 06:30 Imaging - Results X-ray: Report Reviewed (no chf. increased interstitial markings c/w chronic lung disease.) EKG: Pending Problem List - Problems (1) CAD (coronary artery disease) Assessment/Plan: She is stable post AL without evidence of WMA on echo or CHF on examination. Continue DAPT. Elevated bnp may be due to interstitial lung disease and elevated pulm pressures. would consider chest ct scan noncontrast to evaluate parenchyma, but not urgent given the lack of symptoms. No need to repeat cardiac testing at this point. Code(s): I25.10 - ATHSCL HEART DISEASE OF [place] CORONARY ARTERY W/O ANG PCTRS Qualifiers: Coronary Disease-Associated Artery/Lesion type: [place] artery [place] vs. transplanted heart: [place] heart Associated angina: without angina Qualified Code(s): I25.10 - Atherosclerotic heart disease of [place] coronary artery without angina pectoris
[2017-01-27] MEDS: PANTOPRAZOLE 40 MG TABLET (FP) PO SCH (21:52)
[2017-01-27] MEDS ORDERED: ATORVASTATIN CA 80 MG TABLET (FP) PO SCH (22:00)
[2017-01-28] MEDS: SODIUM CHLORIDE 1,000 ML IV SCH (06:04)
[2017-01-28] MEDS: LEVOTHYROXINE NA 50 MCG TABLET (FP) PO SCH (06:05)
[2017-01-28] MEDS: INSULIN SLIDING SCALE (NOVOLOG) 1 VIAL SQ SCH ×2 (06:05→12:00)
[2017-01-28 07:20] LABS: BASOPHIL 0.2 % (0-2.0); EOSINOPHIL 3.5 % (0-4.5); MCH 28.6 pg (25.7-33.7); MCHC 34.1 g/dl (32.0-36.0); MEAN CELL VOLUME 83.8 fl (80-96); MEAN PLT VOLUME 8.8 fl (7.5-11.1); NEUTROPHILS 66.4 % (42.8-82.8); PLATELET COUNT 106 K/MM3 (134-434); RDW 14.2 % (11.6-15.6); WHITE BLOOD COUNT 6.4 K/mm3 (4.0-10.0)
[2017-01-28 07:57] LABS: BILIRUBIN,TOTAL 0.6 mg/dL (0.2-1.0); CALCIUM 8.7 mg/dL (8.5-10.1); COCKROFT - GAULT 55.5645; CREATININE 1.1 mg/dL (0.55-1.02); PHOSPHOROUS 3.6 mg/dL (2.5-4.9); TOT PROT 5.8 g/dl (6.4-8.2)
[2017-01-28] MEDS: ENALAPRIL MALEATE 2.5 MG TABLET (FP) PO SCH (09:44)
[2017-01-28] MEDS: CARVEDILOL 6.25 MG TABLET (FP) PO SCH (09:44)
[2017-01-28] MEDS: CLOPIDOGREL BISULFATE 75 MG TABLET (FP) PO SCH (09:44)
[2017-01-28] MEDS: PANTOPRAZOLE 40 MG TABLET (FP) PO SCH (09:44)
[2017-01-28] MEDS ORDERED: ASPIRIN COATED 81 MG TABLET.EC PO SCH (10:00)
--- NOTE | 2017-01-28 13:35 | DS ---
Physical Exam: SUBJECTIVE: Patient seen and examined Patient is comfortable with no acute distress, no fever or chills, no shortness of breath, no nausea or vomiting, wants to go home. OBJECTIVE: Vital Signs Temperature 98 F 01/28/17 08:00 Pulse Rate 69 01/28/17 08:00 Respiratory Rate 18 01/28/17 08:00 Blood Pressure 150/72 01/28/17 08:00 O2 Sat by Pulse Oximetry (%) 97 01/27/17 21:00 PHYSICAL EXAM GENERAL: The patient is awake, alert, and fully oriented, in no acute distress. HEAD: Normal with no signs of trauma. EYES: PERRL, extraocular movements intact, sclera anicteric, conjunctiva clear. ENT: Ears normal, oropharynx clear without exudates, moist mucous membranes. NECK: Trachea midline, full range of motion, supple. LUNGS: Breath sounds equal, clear to auscultation bilaterally, no wheezes, no crackles, no accessory muscle use. HEART: Regular rate and rhythm, S1, S2 positive , no rub or gallop. ABDOMEN: Soft, nontender, nondistended, normoactive bowel sounds, no guarding, no rebound, no hepatosplenomegaly, no masses. EXTREMITIES: 2+ pulses, warm, well-perfused, no edema. NEUROLOGICAL: Cranial nerves II through XII grossly intact. Normal speech, gait not observed. PSYCH: Normal mood, normal affect. SKIN: Warm, dry, normal turgor, no rashes or lesions noted. LABS CBCD WBC 6.4 K/mm3 (4.0-10.0) D 01/28/17 06:15 RBC 4.17 M/mm3 (3.60-5.2) 01/28/17 06:15 Hgb 11.9 GM/dL (10.7-15.3) 01/28/17 06:15 Hct 35.0 % (32.4-45.2) 01/28/17 06:15 MCV 83.8 fl (80-96) 01/28/17 06:15 MCHC 34.1 g/dl (32.0-36.0) 01/28/17 06:15 RDW 14.2 % (11.6-15.6) 01/28/17 06:15 Plt Count 106 K/MM3 (134-434) L 01/28/17 06:15 MPV 8.8 fl (7.5-11.1) 01/28/17 06:15 CMP Sodium 141 mmol/L (136-145) 01/28/17 06:15 Potassium 3.8 mmol/L (3.5-5.1) 01/28/17 06:15 Chloride 104 mmol/L (98-107) 01/28/17 06:15 Carbon Dioxide 31 mmol/L (21-32) 01/28/17 06:15 Anion Gap 6 (8-16) L 01/28/17 06:15 BUN 20 mg/dL (7-18) H 01/28/17 06:15 Creatinine 1.1 mg/dL (0.55-1.02) H D 01/28/17 06:15 Creat Clearance w eGFR 48.42 (>60) 01/28/17 06:15 Random Glucose 143 mg/dL (74-106) H 01/28/17 06:15 Calcium 8.7 mg/dL (8.5-10.1) 01/28/17 06:15 Total Bilirubin 0.6 mg/dL (0.2-1.0) 01/28/17 06:15 AST 23 U/L (15-37) D 01/28/17 06:15 ALT 21 U/L (12-78) 01/28/17 06:15 Alkaline Phosphatase 88 U/L (45-117) 01/28/17 06:15 Total Protein 5.8 g/dl (6.4-8.2) L 01/28/17 06:15 Albumin 3.0 g/dl (3.4-5.0) L 01/28/17 06:15 CARDIAC ENZYMES Creatine Kinase Cancelled 01/26/17 18:00 Troponin I 0.02 ng/ml (0.00-0.05) 01/26/17 20:42 Current Medications Generic Name Dose Route Start Last Admin Trade Name Freq PRN Reason Stop Dose Admin Acetaminophen 650 mg 01/26/17 23:35 Tylenol - PO Q4H PRN FEVER OR PAIN Aspirin 81 mg 01/28/17 10:00 01/28/17 09:44 Ecotrin - PO 81 mg DAILY RY Administration Atorvastatin Calcium 80 mg 01/27/17 22:00 01/27/17 21:52 Lipitor - PO 80 mg HS RY Administration Carvedilol 6.25 mg 01/27/17 10:00 01/28/17 09:44 Coreg - PO 6.25 mg BID RY Administration Clopidogrel Bisulfate 75 mg 01/27/17 10:00 01/28/17 09:44 Plavix - PO 75 mg DAILY RY Administration Enalapril Maleate 2.5 mg 01/27/17 10:00 01/28/17 09:44 Vasotec - PO 2.5 mg DAILY RY Administration Sodium Chloride 1,000 mls @ 75 mls/hr 01/26/17 23:45 01/28/17 06:04 Normal Saline - IV 75 mls/hr ASDIR RY Administration Insulin Aspart 1 vial 01/27/17 07:00 01/28/17 12:00 Novolog Vial Sliding Scale - SQ Not Given ACHS [facility] Protocol Levothyroxine Sodium 50 mcg 01/27/17 07:00 01/28/17 06:05 Synthroid - PO 50 mcg AM RY Administration Pantoprazole Sodium 40 mg 01/27/17 22:00 01/28/17 09:44 Protonix - PO 40 mg BID RY Administration Home Medications Medication Instructions Recorded Metformin Xr [Glucophage *Xr* -] 750 mg PO BID 12/17/16 Aspirin [ASA -] 81 mg PO DAILY 01/26/17 Atorvastatin Ca [Lipitor] 80 mg PO HS 01/26/17 Carvedilol [Coreg -] 6.25 mg PO BID 01/26/17 Clopidogrel Bisulfate [Plavix -] 75 mg PO DAILY 01/26/17 Enalapril Maleate [Vasotec -] 2.5 mg PO DAILY 01/26/17 Nitrofurantoin Macrocrystal 100 mg PO BID 01/26/17 [Nitrofurantoin] Omeprazole 40 mg PO DAILY 01/26/17 Microbiology 01/26/17 18:00 Urine - Urine Clean Catch Urine Culture - Final NO GROWTH OBTAINED 01/26/17 20:43 Nasopharyngeal Swab Influenza Types A,B Antigen (PEGGY) - Final 01/26/17 20:43 Nasopharyngeal Swab - Final 01/26/17 18:00 Blood - Peripheral Venous Blood Culture - Preliminary NO GROWTH OBTAINED AFTER 24 HOURS, INCUBATION TO CONTINUE FOR 4 DAYS. 01/26/17 18:00 Blood - Peripheral Venous Blood Culture - Preliminary NO GROWTH OBTAINED AFTER 24 HOURS, INCUBATION TO CONTINUE FOR 4 DAYS. HOSPITAL COURSE: Date of Admission:01/26/17 Date of Discharge: 01/28/17 This is a 76 yo F with PMHx of [place] s/p 3 stents Sul[place] 1 mo ago, CAD, NIDDM2, hypothyroidism (not on meds x 1 mo) and ovarian ca s/o total hysterectomy and oophorectomy 25 yrs ago, who presents with intermitant vomiting that started immediately after cardiac cath. Patient will be discharged home, comfortable. No further vomiting, no further fever, no urinary symptoms, no hesitancy or urgency. Continue home meds. patient was seen by continuous conveyor screen drier while in the hospital. As per Cardio. Chest ct scan noncontrast to evaluate lung parenchyma as an outpatient. # Acute vomiting improved. # Acute UTI, presented with fever of 102.4 and wbc 7.6 s/p IV Levaquin x 1 dose UA negative so far. s/p 1week of abx; u culture p/d pt allergic to Pen, s/p one dose levaquin IV # CAD s/p [place] 1 mo ago s/p 3 stents on asa, plavix, coreg, vasotec, lipitor 80 hs ,BNP (3000 here) , echo. Cardio consult appreciated. elevated BNP given one dose of IV lasix. # HTN uncontrolled continue home meds, will give one dose of Lasix # Hypothyroid continue levoxyl #T2DM hold metformin 750 bid , bgm achs, sliding scale Reinforcer at bedside; Kaitlin. Minutes to complete discharge: 35 Discharge Summary Reason For Visit: FEVER/ INTRACTABLE VOMITING WITH NAUSEA Current Active Problems CAD (coronary artery disease) (Acute) Fever (Acute) History of myocardial infarction less than 8 weeks (Acute) Intractable nausea and vomiting (Acute) UTI (urinary tract infection) (Acute) Condition: Guarded - Instructions Diet, Activity, Other Instructions: Diabetic diet follow with your primary care care doctor in a week period. chest ct scan noncontrast to evaluate Lung Parenchyma as an outpatient , follow up with your Primary care doctor. Referrals: Dank Hatfield MD [Primary Care Provider] - 1 Week - Home Medications Comprehensive Discharge Medication List: Ambulatory Orders Metformin Xr [Glucophage *Xr* -] 750 mg PO BID 12/17/16 Aspirin [ASA -] 81 mg PO DAILY 01/26/17 Atorvastatin Ca [Lipitor] 80 mg PO HS 01/26/17 Carvedilol [Coreg -] 6.25 mg PO BID 01/26/17 Clopidogrel Bisulfate [Plavix -] 75 mg PO DAILY 01/26/17 Enalapril Maleate [Vasotec -] 2.5 mg PO DAILY 01/26/17 Nitrofurantoin Macrocrystal [Nitrofurantoin] 100 mg PO BID 01/26/17 Omeprazole 40 mg PO DAILY 01/26/17 This patient is new to me today: No Emergency Visit: Yes ED Registration Date: 01/26/17 Care time: The patient presented to the Emergency Department on the above date and was hospitalized for further evaluation of their emergent condition. Critical Care patient: No - Discharge Referral Referred to [facility] Med P.C.: No
[2017-01-28 14:13] VITALS: BP 155/79; PULSE 73; TEMP 98.1
--- NOTE | 2017-01-28 15:31 | PN ---
Progress Note, Physician History of Present Illness: 76f history of htn, niddm, chol, hypothyroidism, recent STEMI at [facility] transferred to [facility] for urgent cath 12/17/16 s/p EVERETT to OM3, then staged EVERETT to LAD and PTCA of D2 12/27/16 now admitted with abdominal pain and vomiting without blood or bile. No chest pain, sob, orthopnea, pnd or edema. Exercise tolerance is good. No angina. Noted with abnormal bnp. Echo at [facility] 12/18/16 normal ef, no wall motion abnormalities, mild mr minimal tr , aortic sclerosis. No bnp was drawn at [facility]. Now without symptoms. feels well, ambulating. - Objective Vital Signs: Vital Signs Temperature 98.1 F 01/28/17 14:11 Pulse Rate 73 01/28/17 14:11 Respiratory Rate 18 01/28/17 08:00 Blood Pressure 155/79 01/28/17 14:11 O2 Sat by Pulse Oximetry (%) 96 01/28/17 09:00 Constitutional: Yes: Well Nourished, No Distress Eyes: Yes: Conjunctiva Clear, EOM Intact HENT: Yes: Atraumatic, Normocephalic Neck: Yes: Supple, Trachea Midline Cardiovascular: Yes: Regular Rate and Rhythm Respiratory: Yes: CTA Bilaterally Gastrointestinal: Yes: Normal Bowel Sounds, Soft Extremities: Yes: WNL Edema: No Peripheral Pulses WNL: Yes Labs: CBC, BMP 01/28/17 06:15 01/28/17 06:15 Problem List - Problems (1) CAD (coronary artery disease) Assessment/Plan: She is stable post NV without evidence of WMA on echo or CHF on examination. Continue DAPT. Elevated bnp may be due to interstitial lung disease and elevated pulm pressures. would consider chest ct scan noncontrast to evaluate parenchyma, but not urgent given the lack of symptoms. No need to repeat cardiac testing at this point. follow as outpatient Code(s): I25.10 - ATHSCL HEART DISEASE OF [place] CORONARY ARTERY W/O ANG PCTRS Qualifiers: Coronary Disease-Associated Artery/Lesion type: [place] artery [place] vs. transplanted heart: [place] heart Associated angina: without angina Qualified Code(s): I25.10 - Atherosclerotic heart disease of [place] coronary artery without angina pectoris
--- NOTE | 2017-01-28 22:49 | EKG ---
Test Reason : Blood Pressure : / mmHG Vent. Rate : 071 BPM Atrial Rate : 071 BPM P-R Int : 212 ms QRS Dur : 076 ms QT Int : 416 ms P-R-T Axes : 077 -29 -12 degrees QTc Int : 452 ms SINUS RHYTHM WITH 1ST DEGREE A-V BLOCK LEFTWARD AXIS INFERIOR INFARCT (CITED ON OR BEFORE 17-DEC-2016) ABNORMAL ECG WHEN COMPARED WITH ECG OF 17-DEC-2016 20:17, PREMATURE VENTRICULAR COMPLEXES ARE NO LONGER PRESENT ST NO LONGER ELEVATED IN INFERIOR LEADS Confirmed by BRIGETTE MAGAÑA MD ([id number]) on 01/28/2017 10:49:48 PM Referred By: Confirmed By:BRIGETTE MAGAÑA MD
== END 2017-01-28 15:17 | disposition home or self-care (01) ==
LOC: JER 13:23 → JERBED 23:06 → UNDOADMOB 01-27 00:57 → JERBED 01-27 04:50 → J6S 01-27 04:50
PROVIDERS: ADMIT Internal Medicine; ATTEND Internal Medicine
PROC: 3E03329 Introduction of Other Anti-infective into Peripheral Vein, Percutaneous Approach (ICD-10-PCS; principal; 2017-01-26)
PROC: 3E0337Z Introduction of Electrolytic and Water Balance Substance into Peripheral Vein, Percutaneous Approach (ICD-10-PCS; 2017-01-26)
PROC: 3E033GC Introduction of Other Therapeutic Substance into Peripheral Vein, Percutaneous Approach (ICD-10-PCS; 2017-01-26)
DX: R11.2 Nausea with vomiting, unspecified (principal); R50.9 Fever, unspecified; N39.0 Urinary tract infection, site not specified; I25.2 Old myocardial infarction; I10 Essential (primary) hypertension; I25.10 Atherosclerotic heart disease of native coronary artery without angina pectoris; E11.9 Type 2 diabetes mellitus without complications; E03.9 Hypothyroidism, unspecified; Z95.5 Presence of coronary angioplasty implant and graft; Z79.82 Long term (current) use of aspirin; Z79.84 Long term (current) use of oral hypoglycemic drugs
CPT/HCPCS: 36415; 71010-TC; 74000-TC; 76705-TC; 80048; 80053; 81003; 81015; 83605; 83735; 83880; 84100; 84439; 84443; 84484; 85025; 85027; 87040; 87086; 87254; 87804; 93005; 93010; 99285-25; G0378

== ENCOUNTER 2018-10-07 09:48 | Emergency (ER) | payer OTHER | END 2018-10-07 13:41 | disposition home or self-care (01) | LOC: JER 09:48 ==

== ENCOUNTER 2020-11-18 16:54 | Inpatient (IN) | payer OTHER ==
[2020-11-18 17:14] VITALS: BMI 35.7
[2020-11-18] MEDS ORDERED: ASPIRIN 81 MG CHEWABLE TABLETS PO ONE (19:11)
[2020-11-18] MEDS ORDERED: ACETAMINOPHEN 1000 MG/100 ML VIAL (NON FORMULARY) IVPB ONE (19:11)
[2020-11-18] MEDS ORDERED: ASPIRIN 81 MG CHEWABLE TABLETS ONE (19:27)
[2020-11-18] MEDS ORDERED: ACETAMINOPHEN INJECTION 100 ML IVPB ONE (19:27)
[2020-11-18 19:49] LABS: BASO % 0.2 % (0-2.0); EOS % 2.5 % (0-4.5); HEMOGLOBIN 9.4 GM/dL (10.7-15.3); LYMPH % 29.6 % (8-40); MCH 24.1 pg (25.7-33.7); MCHC 31.4 g/dl (32.0-36.0); MEAN CELL VOLUME 76.7 fl (80-96); MEAN PLT VOLUME 9.9 fl (7.5-11.1); MONO % 8.1 % (3.8-10.2); NEUT % 59.6 % (42.8-82.8); PLATELET COUNT 201 K/MM3 (134-434); RBC 3.91 M/mm3 (3.60-5.2); RDW 16.1 % (11.6-15.6); WHITE BLOOD COUNT 8.5 K/mm3 (4.0-10.0)
[2020-11-18 20:04] LABS: PROTHROMBIN TIME (PATIENT) 12.1 SEC (9.7-13.0)
[2020-11-18 20:05] LABS: CHLORIDE 106 mmol/L (98-107); POTASSIUM 4.8 mmol/L (3.5-5.1); SODIUM 136 mmol/L (136-145)
[2020-11-18 20:08] LABS: CALCIUM 8.7 mg/dL (8.5-10.1)
[2020-11-18 20:09] LABS: ALBUMIN 3.2 g/dl (3.4-5.0); ANION GAP 4 MMOL/L (8-16); BLOOD UREA NITROGEN 29.9 mg/dL (7-18); CO2 27 mmol/L (21-32); GLUCOSE,RANDOM 131 mg/dL (74-106)
[2020-11-18 20:12] LABS: CREATININE 1.4 mg/dL (0.55-1.3); SGOT/AST 23 U/L (15-37); SGPT/ALT 17 U/L (13-61)
[2020-11-18 20:14] LABS: BILIRUBIN,TOTAL 0.6 mg/dL (0.2-1); TOT PROT 6.8 g/dl (6.4-8.2)
[2020-11-18 20:15] LABS: ALK PHOS 97 U/L (45-117)
[2020-11-18 20:17] LABS: N-TERMINAL BNP 916.9 pg/ml (5-450)
[2020-11-19] MEDS ORDERED: LEVOTHYROXINE NA 50 MCG TABLET (FP) PO SCH (07:00)
[2020-11-19 07:51] LABS: BASO % 0.1 % (0-2.0); HEMATOCRIT 29.1 % (32.4-45.2); HEMOGLOBIN 9.4 GM/dL (10.7-15.3); MCH 24.7 pg (25.7-33.7); MCHC 32.4 g/dl (32.0-36.0); MEAN CELL VOLUME 76.2 fl (80-96); MEAN PLT VOLUME 9.2 fl (7.5-11.1); MONO % 7.8 % (3.8-10.2); NEUT % 55.1 % (42.8-82.8); PLATELET COUNT 179 K/MM3 (134-434); RBC 3.82 M/mm3 (3.60-5.2); WHITE BLOOD COUNT 6.2 K/mm3 (4.0-10.0)
[2020-11-19 07:59] LABS: CHLORIDE 106 mmol/L (98-107); POTASSIUM 4.2 mmol/L (3.5-5.1); SODIUM 138 mmol/L (136-145)
[2020-11-19 08:06] LABS: ALBUMIN 3.2 g/dl (3.4-5.0); ANION GAP 3 MMOL/L (8-16); BLOOD UREA NITROGEN 24.4 mg/dL (7-18); CALCIUM 8.8 mg/dL (8.5-10.1); CO2 29 mmol/L (21-32); GLUCOSE,RANDOM 128 mg/dL (74-106); MAGNESIUM 2.2 mg/dL (1.8-2.4)
[2020-11-19 08:08] LABS: BILIRUBIN,TOTAL 0.3 mg/dL (0.2-1); TOT PROT 6.4 g/dl (6.4-8.2)
[2020-11-19 08:09] LABS: CHOLESTEROL 136 mg/dL (50-200); CREATININE 1.2 mg/dL (0.55-1.3); SGOT/AST 13 U/L (15-37); SGPT/ALT 13 U/L (13-61); TRIGLYCERIDES 220 mg/dL (0-150)
[2020-11-19 08:10] LABS: ALK PHOS 96 U/L (45-117); LDL CHOLESTEROL (ONLY SJRH) 74 mg/dL (5-100)
[2020-11-19 08:11] LABS: HDL CHOLESTEROL 31 mg/dL (40-60)
[2020-11-19] MEDS ORDERED: ASPIRIN COATED 81 MG TABLET.EC PO SCH (10:00)
[2020-11-19] MEDS ORDERED: LOSARTAN POTASSIUM 50 MG TABLET PO SCH (10:00)
[2020-11-19] MEDS ORDERED: hydrALAZINE HCL 25 MG TABLET (FP) PO SCH (10:00)
[2020-11-19] MEDS ORDERED: SERTRALINE HCL 25 MG TABLET (FP) PO SCH (10:00)
[2020-11-19] MEDS ORDERED: CARVEDILOL 6.25 MG TABLET (FP) PO SCH (10:00)
[2020-11-19] MEDS ORDERED: amLODIPine BESYLATE 5 MG TABLET (FP) PO SCH (10:00)
[2020-11-19 11:48] VITALS: BP 149/76; PULSE 65; TEMP 98.1
[2020-11-19] MEDS ORDERED: MONTELUKAST NA 10 MG TABLET PO SCH (22:00)
[2020-11-19] MEDS ORDERED: ATORVASTATIN CA 80 MG TABLET (FP) PO SCH (22:00)
== END 2020-11-19 13:02 | disposition home or self-care (01) | DRG 313 ==
LOC: JER 16:54 → JERBED 20:57 → OBSVTOIN 20:57 → J4W 11-19 00:52
PROVIDERS: ADMIT Internal Medicine; ATTEND Internal Medicine
DX: R07.9 Chest pain, unspecified (principal); N17.9 Acute kidney failure, unspecified; I25.10 Atherosclerotic heart disease of native coronary artery without angina pectoris; E11.9 Type 2 diabetes mellitus without complications; I10 Essential (primary) hypertension; E03.9 Hypothyroidism, unspecified; Z88.0 Allergy status to penicillin; D64.9 Anemia, unspecified; I44.0 Atrioventricular block, first degree; Z79.84 Long term (current) use of oral hypoglycemic drugs; Z85.43 Personal history of malignant neoplasm of ovary; E66.9 Obesity, unspecified; Z20.822 Contact with and (suspected) exposure to COVID-19; Z68.35 Body mass index [BMI] 35.0-35.9, adult
CPT/HCPCS: 36415; 71045-TC-FY; 80053; 80061; 82962; 83721; 83735; 83880; 84443; 84484; 85025; 85379; 85610; 85730; 87804; 93005; 93010; 99285-25; C9803; J0131; U0003

== ENCOUNTER 2021-06-23 05:05 | Day surgery (SDC) | payer OTHER ==
[2021-06-22 07:53] VITALS: BMI 36.3
[2021-06-23 09:22] VITALS: TEMP 96.9
[2021-06-23 10:29] VITALS: BP 168/80; PULSE 70
== END 2021-06-23 10:45 | disposition home or self-care (01) ==
LOC: JASU-ENDO 05:05
PROVIDERS: ATTEND Internal Medicine Gastroenterology
PROC: 0DB68ZX Excision of Stomach, Via Natural or Artificial Opening Endoscopic, Diagnostic (ICD-10-PCS; principal; 2021-06-23 09:00)
DX: D50.9 Iron deficiency anemia, unspecified (principal); K31.7 Polyp of stomach and duodenum; K44.9 Diaphragmatic hernia without obstruction or gangrene; K29.50 Unspecified chronic gastritis without bleeding; E11.9 Type 2 diabetes mellitus without complications; I10 Essential (primary) hypertension
CPT/HCPCS: 88305-TC; 88342-TC

== ENCOUNTER 2021-06-30 04:49 | Day surgery (SDC) | payer OTHER ==
[2021-06-27 12:09] VITALS: BMI 35.1
[2021-06-30] MEDS ORDERED: KETAMINE HCL 200 MG/20 ML VIAL ONE (07:51)
[2021-06-30 09:39] VITALS: BP 149/64; PULSE 76; TEMP 97.6
== END 2021-06-30 10:01 | disposition home or self-care (01) ==
LOC: JASU-ENDO 04:49
PROVIDERS: ATTEND Internal Medicine Gastroenterology
PROC: 0DBN8ZX Excision of Sigmoid Colon, Via Natural or Artificial Opening Endoscopic, Diagnostic (ICD-10-PCS; 2021-06-30)
PROC: 0DBH8ZX Excision of Cecum, Via Natural or Artificial Opening Endoscopic, Diagnostic (ICD-10-PCS; 2021-06-30)
PROC: 0DBK8ZX Excision of Ascending Colon, Via Natural or Artificial Opening Endoscopic, Diagnostic (ICD-10-PCS; principal; 2021-06-30 08:15)
DX: D50.9 Iron deficiency anemia, unspecified (principal); K57.30 Diverticulosis of large intestine without perforation or abscess without bleeding; D12.2 Benign neoplasm of ascending colon; D12.0 Benign neoplasm of cecum; D12.5 Benign neoplasm of sigmoid colon; K64.8 Other hemorrhoids; E11.9 Type 2 diabetes mellitus without complications; I10 Essential (primary) hypertension; G20 Parkinson's disease
CPT/HCPCS: 82962; 88305-TC

== ENCOUNTER 2022-10-03 12:58 | Emergency (ER) | payer OTHER ==
[2022-10-03 13:06] VITALS: BP 157/57; PULSE 74; RESP 18; TEMP 98.4; BMI 36.1
[2022-10-03] MEDS ORDERED: morphine CARPU-JECT 2 MG/1 ML DISP.SYRIN IVPUSH ONE ×2 (13:19→13:21)
[2022-10-03] MEDS ORDERED: LIDOCAINE 5% TOPICAL PATCH TP ONE (13:22)
[2022-10-03 13:38] LABS: INR 1.09 (0.83-1.09); PROTHROMBIN TIME (PATIENT) 12.6 SEC (9.7-13.0)
[2022-10-03 13:39] LABS: HEMATOCRIT 30.9 % (32.4-45.2); HEMOGLOBIN 10.1 G/dL (10.7-15.3); MCH 24.5 pg (25.7-33.7); MCHC 32.8 g/dl (32.0-36.0); MEAN CELL VOLUME 74.8 fl (80-96); MEAN PLT VOLUME 9.1 fl (7.5-11.1); RBC 4.13 10^6/uL (3.60-5.2); RDW 17.8 % (11.6-15.6); WHITE BLOOD COUNT 9.9 10^3/uL (4.0-10.8)
[2022-10-03 13:55] LABS: ALBUMIN 3.6 g/dl (3.4-5.0); BILIRUBIN,TOTAL 0.5 mg/dl (0.2-1); CALCIUM 8.7 mg/dl (8.5-10); CREATININE 1.4 mg/dl (0.55-1.3)
[2022-10-03] MEDS ORDERED: LIDOCAINE 5% TOPICAL PATCH ONE (13:56)
[2022-10-03] MEDS ORDERED: morphine SULFATE 4 MG/ML VIAL ONE (13:56)
[2022-10-03 14:04] LABS: PLATELET ESTIMATE ADEQUATE
[2022-10-03] MEDS ORDERED: LIDOCAINE PATCH REMOVAL MC SCH (22:00)
== END 2022-10-03 15:10 | disposition home or self-care (01) ==
LOC: FER 12:58
PROC: 3E033NZ Introduction of Analgesics, Hypnotics, Sedatives into Peripheral Vein, Percutaneous Approach (ICD-10-PCS; principal; 2022-10-03)
DX: M75.51 Bursitis of right shoulder (principal); M75.52 Bursitis of left shoulder
CPT/HCPCS: 0241U-QW; 36415; 71045-TC-FY; 73030-TC-LT-FY; 73030-TC-RT-FY; 80053; 84443; 85027; 85610; 93005; 99285-25

== ENCOUNTER 2023-01-23 15:34 | Inpatient (IN) | payer OTHER ==
[2023-01-23 15:45] VITALS: BMI 36.1
[2023-01-23] MEDS ORDERED: ACETAMINOPHEN 1000 MG/100 ML BAG IVPB ONE (16:45)
[2023-01-23] MEDS ORDERED: ACETAMINOPHEN INJECTION 100 ML IVPB ONE (16:50)
[2023-01-23 17:23] LABS: BASO % 0.2 % (0-2.0); EOS % 0.3 % (0-4.5); HEMATOCRIT 33.1 % (32.4-45.2); HEMOGLOBIN 10.5 GM/dL (10.7-15.3); LYMPH % 20.8 % (8-40); MCH 23.2 pg (25.7-33.7); MCHC 31.9 g/dl (32.0-36.0); MEAN CELL VOLUME 72.9 fl (80-96); MEAN PLT VOLUME 9.2 fl (7.5-11.1); MONO % 9.2 % (3.8-10.2); NEUT % 69.5 % (42.8-82.8); PLATELET COUNT 171 10^3/uL (134-434); RBC 4.54 M/mm3 (3.60-5.2); RDW 18.8 % (11.6-15.6); WHITE BLOOD COUNT 9.4 K/mm3 (4.0-10.0)
[2023-01-23 17:45] LABS: POTASSIUM 4.6 mmol/L (3.5-5.1)
[2023-01-23 17:47] LABS: ALBUMIN 3.3 g/dl (3.4-5.0); BLOOD UREA NITROGEN 28.4 mg/dL (7-18); CALCIUM 9.2 mg/dL (8.5-10.1)
[2023-01-23 17:49] LABS: CREATININE 1.5 mg/dL (0.55-1.3)
[2023-01-23 17:51] LABS: BILIRUBIN,TOTAL 0.6 mg/dL (0.2-1); TOT PROT 6.4 g/dl (6.4-8.2)
[2023-01-23] MEDS ORDERED: amLODIPine BESYLATE 5 MG TABLET (FP) PO ONE (18:36)
[2023-01-23] MEDS ORDERED: CARVEDILOL 6.25 MG TABLET (FP) PO ONE (18:36)
[2023-01-23] MEDS ORDERED: LOSARTAN POTASSIUM 50 MG TABLET PO ONE (18:38)
[2023-01-23] MEDS ORDERED: CARVEDILOL 6.25 MG TABLET (FP) ONE (19:13)
[2023-01-23] MEDS ORDERED: amLODIPine BESYLATE 5 MG TABLET (FP) ONE (19:13)
[2023-01-23] MEDS ORDERED: LOSARTAN POTASSIUM 50 MG TABLET ONE (19:13)
[2023-01-23 20:18] LABS: EPI CELLS 8 /uL (0-25.1); HYALINE CASTS 0 /uL (0-3.1); URINE APPEARANCE CLOUDY; URINE BACTERIA 2803 /uL (0-1359); URINE BILIRUBIN NEGATIVE (NEGATIVE); URINE COLOR YELLOW; URINE GLUCOSE (UA) NEGATIVE (NEGATIVE); URINE KETONE NEGATIVE (NEGATIVE); URINE LEUK ESTERASE 1+ (NEGATIVE); URINE NITRITE POSITIVE (NEGATIVE); URINE PROTEIN 1+ (NEGATIVE); URINE RBC 12 /uL (0-23.9); URINE UROBILINOGEN 0.2 mg/dL (0.2-1.0); URINE WBC 225 /uL (0-25.8)
[2023-01-23] MEDS ORDERED: CEFTRIAXONE 1,000 MG in DEXTROSE 5%-WATER - 50 ML IVPB ONE (20:57)
[2023-01-23] MEDS ORDERED: CEFTRIAXONE 1 GM/50 ML BAG ONE (22:32)
[2023-01-24] MEDS ORDERED: LEVOTHYROXINE NA 50 MCG TABLET (FP) ONE (08:23)
[2023-01-24] MEDS: LEVOTHYROXINE NA 50 MCG TABLET (FP) PO SCH (08:28)
[2023-01-24 09:07] LABS: BASO % 0.3 % (0-2.0); EOS % 0.6 % (0-4.5); HEMATOCRIT 32.6 % (32.4-45.2); HEMOGLOBIN 10.4 GM/dL (10.7-15.3); LYMPH % 22.1 % (8-40); MCH 23.3 pg (25.7-33.7); MEAN CELL VOLUME 72.7 fl (80-96); MEAN PLT VOLUME 9.2 fl (7.5-11.1); PLATELET COUNT 161 10^3/uL (134-434); RBC 4.48 M/mm3 (3.60-5.2); WHITE BLOOD COUNT 9.8 K/mm3 (4.0-10.0)
[2023-01-24 09:34] LABS: ALBUMIN 3.1 g/dl (3.4-5.0); BLOOD UREA NITROGEN 22.5 mg/dL (7-18); CALCIUM 9.1 mg/dL (8.5-10.1)
[2023-01-24 09:37] LABS: CREATININE 1.2 mg/dL (0.55-1.3)
[2023-01-24 09:38] LABS: TOT PROT 6.1 g/dl (6.4-8.2)
[2023-01-24 09:39] LABS: BILIRUBIN,TOTAL 0.6 mg/dL (0.2-1)
[2023-01-24] MEDS: HYDROCHLOROTHIAZIDE 25 MG TABLET (FP) PO SCH (11:06)
[2023-01-24] MEDS: SERTRALINE HCL 25 MG TABLET (FP) PO SCH (11:06)
[2023-01-24] MEDS: PANTOPRAZOLE 20 MG TABLET PO SCH (11:06)
[2023-01-24] MEDS: CARVEDILOL 6.25 MG TABLET (FP) PO SCH ×2 (11:06→21:46)
[2023-01-24] MEDS: ASPIRIN COATED 81 MG TABLET.EC PO SCH (11:06)
[2023-01-24] MEDS ORDERED: hydrALAZINE HCL 25 MG TABLET (FP) PO ONE (16:19)
[2023-01-24] MEDS: hydrALAZINE HCL 25 MG TABLET (FP) PO SCH (21:46)
[2023-01-24] MEDS: MONTELUKAST NA 10 MG TABLET PO SCH (21:46)
[2023-01-24] MEDS: DOCUSATE SODIUM 100 MG CAPSULE (FP) PO PRN (21:46)
[2023-01-24] MEDS: ATORVASTATIN CA 80 MG TABLET (FP) PO SCH (21:46)
[2023-01-25] MEDS ORDERED: hydrALAZINE HCL 25 MG TABLET (FP) PO ONE (06:08)
[2023-01-25] MEDS: LEVOTHYROXINE NA 50 MCG TABLET (FP) PO SCH (06:09)
[2023-01-25 08:11] LABS: BASO % 0.2 % (0-2.0); EOS % 0.8 % (0-4.5); HEMATOCRIT 31.8 % (32.4-45.2); HEMOGLOBIN 10.4 GM/dL (10.7-15.3); LYMPH % 29.6 % (8-40); MCH 23.6 pg (25.7-33.7); MCHC 32.6 g/dl (32.0-36.0); MEAN CELL VOLUME 72.5 fl (80-96); MEAN PLT VOLUME 8.8 fl (7.5-11.1); MONO % 8.8 % (3.8-10.2); NEUT % 60.6 % (42.8-82.8); PLATELET COUNT 169 10^3/uL (134-434); RBC 4.39 M/mm3 (3.60-5.2); RDW 18.9 % (11.6-15.6); WHITE BLOOD COUNT 8.3 K/mm3 (4.0-10.0)
[2023-01-25 08:54] LABS: ALBUMIN 2.8 g/dl (3.4-5.0); BLOOD UREA NITROGEN 22.2 mg/dL (7-18)
[2023-01-25 08:57] LABS: CREATININE 1.4 mg/dL (0.55-1.3)
[2023-01-25 08:58] LABS: BILIRUBIN,TOTAL 0.7 mg/dL (0.2-1)
[2023-01-25] MEDS: hydrALAZINE HCL 25 MG TABLET (FP) PO SCH ×2 (10:11→22:08)
[2023-01-25] MEDS: CARVEDILOL 6.25 MG TABLET (FP) PO SCH (10:11)
[2023-01-25] MEDS: LOSARTAN POTASSIUM 50 MG TABLET PO SCH (10:12)
[2023-01-25] MEDS: amLODIPine BESYLATE 10 MG TABLET (FP) PO SCH (10:12)
[2023-01-25] MEDS: predniSONE 5 MG TABLET (UD) PO SCH (10:12)
[2023-01-25] MEDS: ASPIRIN COATED 81 MG TABLET.EC PO SCH (10:12)
[2023-01-25] MEDS: HYDROCHLOROTHIAZIDE 25 MG TABLET (FP) PO SCH (10:12)
[2023-01-25] MEDS: PANTOPRAZOLE 20 MG TABLET PO SCH (10:13)
[2023-01-25] MEDS: SERTRALINE HCL 25 MG TABLET (FP) PO SCH (10:13)
[2023-01-25] MEDS: POLYETHYLENE GLYCOL (HEALTHYLAX) 3350 17 GM PACKET PO SCH ×2 (11:52→22:08)
[2023-01-25] MEDS: ATORVASTATIN CA 80 MG TABLET (FP) PO SCH (22:08)
[2023-01-25] MEDS: MONTELUKAST NA 10 MG TABLET PO SCH (22:08)
[2023-01-25] MEDS: CARVEDILOL 12.5 MG TABLET (FP) PO SCH (22:08)
[2023-01-26] MEDS: LEVOTHYROXINE NA 50 MCG TABLET (FP) PO SCH (06:21)
[2023-01-26] MEDS: predniSONE 5 MG TABLET (UD) PO SCH (09:16)
[2023-01-26] MEDS: ASPIRIN COATED 81 MG TABLET.EC PO SCH (09:16)
[2023-01-26] MEDS: LOSARTAN POTASSIUM 50 MG TABLET PO SCH (09:16)
[2023-01-26] MEDS: hydrALAZINE HCL 25 MG TABLET (FP) PO SCH ×2 (09:16→21:26)
[2023-01-26] MEDS: CARVEDILOL 12.5 MG TABLET (FP) PO SCH ×2 (09:16→21:26)
[2023-01-26] MEDS: amLODIPine BESYLATE 10 MG TABLET (FP) PO SCH (09:17)
[2023-01-26] MEDS: PANTOPRAZOLE 20 MG TABLET PO SCH (09:17)
[2023-01-26] MEDS: SERTRALINE HCL 25 MG TABLET (FP) PO SCH (09:17)
[2023-01-26] MEDS: POLYETHYLENE GLYCOL (HEALTHYLAX) 3350 17 GM PACKET PO SCH ×2 (09:17→21:24)
[2023-01-26] MEDS: HYDROCHLOROTHIAZIDE 25 MG TABLET (FP) PO SCH (09:17)
[2023-01-26] MEDS: DOCUSATE SODIUM 100 MG CAPSULE (FP) PO PRN (09:32)
[2023-01-26 16:17] VITALS: RESP 18
[2023-01-26] MEDS ORDERED: BISACODYL 10 MG SUPP.RECT PR ONE (17:49)
[2023-01-26] MEDS: ATORVASTATIN CA 80 MG TABLET (FP) PO SCH (21:25)
[2023-01-26] MEDS: BENZTROPINE MESYLATE 0.5 MG TABLET (FP) PO SCH ×2 (21:25→21:27)
[2023-01-26] MEDS: MONTELUKAST NA 10 MG TABLET PO SCH (21:27)
[2023-01-27] MEDS: LEVOTHYROXINE NA 50 MCG TABLET (FP) PO SCH (06:23)
[2023-01-27] MEDS: POLYETHYLENE GLYCOL (HEALTHYLAX) 3350 17 GM PACKET PO SCH (09:26)
[2023-01-27] MEDS: CARVEDILOL 12.5 MG TABLET (FP) PO SCH (09:26)
[2023-01-27] MEDS: LOSARTAN POTASSIUM 50 MG TABLET PO SCH (09:27)
[2023-01-27] MEDS: SERTRALINE HCL 25 MG TABLET (FP) PO SCH (09:27)
[2023-01-27] MEDS: HYDROCHLOROTHIAZIDE 25 MG TABLET (FP) PO SCH (09:27)
[2023-01-27] MEDS: PANTOPRAZOLE 20 MG TABLET PO SCH (09:27)
[2023-01-27] MEDS: hydrALAZINE HCL 25 MG TABLET (FP) PO SCH (09:27)
[2023-01-27] MEDS: amLODIPine BESYLATE 10 MG TABLET (FP) PO SCH (09:27)
[2023-01-27] MEDS: BENZTROPINE MESYLATE 0.5 MG TABLET (FP) PO SCH (09:27)
[2023-01-27] MEDS: ASPIRIN COATED 81 MG TABLET.EC PO SCH (09:27)
[2023-01-27] MEDS: predniSONE 5 MG TABLET (UD) PO SCH (09:27)
[2023-01-27] MEDS ORDERED: BISACODYL 5 MG TABLET.DR (FP) PO ONE (10:10)
[2023-01-27 13:10] VITALS: PULSE 80
[2023-01-27 15:24] VITALS: BP 148/68; TEMP 97.6
== END 2023-01-27 15:47 | disposition home or self-care (01) | DRG 690 ==
LOC: JER 15:34 → JERBED 21:24 → J5S 01-24 09:05 → OBSVTOIN 01-24 15:15
PROVIDERS: ADMIT Internal Medicine; ATTEND Internal Medicine
DX: N39.0 Urinary tract infection, site not specified (principal); M35.3 Polymyalgia rheumatica; I25.10 Atherosclerotic heart disease of native coronary artery without angina pectoris; E11.9 Type 2 diabetes mellitus without complications; E03.9 Hypothyroidism, unspecified; I10 Essential (primary) hypertension; R55 Syncope and collapse
CPT/HCPCS: 0241U-QW; 36415; 70450-TC; 71045-TC-FY; 72125-TC; 73070-TC-RT-FY; 73110-TC-RT-FY; 73130-TC-RT-FY; 80053; 81003; 82962; 84439; 84443; 84484; 85025; 87086; 87186; 93005; 93010; 97116-GP; 97161-GP; 99285-25; G0378

== ENCOUNTER 2023-11-19 08:52 | Inpatient (IN) | payer OTHER ==
[2023-11-19 09:53] LABS: INR 1.11 (0.83-1.09); PROTHROMBIN TIME (PATIENT) 12.9 SEC (9.7-13.0)
[2023-11-19 09:55] LABS: BASO % 0.2 % (0-2.0); EOS % 0.7 % (0-4.5); HEMATOCRIT 32.6 % (32.4-45.2); HEMOGLOBIN 10.3 GM/dL (10.7-15.3); LYMPH % 14.7 % (8-40); MCH 23.2 pg (25.7-33.7); MCHC 31.5 g/dl (32.0-36.0); MEAN CELL VOLUME 73.5 fl (80-96); MEAN PLT VOLUME 8.5 fl (7.5-11.1); MONO % 5.7 % (3.8-10.2); NEUT % 78.7 % (42.8-82.8); PLATELET COUNT 234 10^3/uL (134-434); RBC 4.44 M/mm3 (3.60-5.2); RDW 19.6 % (11.6-15.6); WHITE BLOOD COUNT 11.8 K/mm3 (4.0-10.0)
[2023-11-19 09:56] LABS: ACTIVATED PTT 30.5 SECONDS (25.2-36.5)
[2023-11-19 10:17] LABS: POTASSIUM 5.2 mmol/L (3.5-5.1)
[2023-11-19 10:19] LABS: ALBUMIN 3.5 g/dl (3.4-5.0); BLOOD UREA NITROGEN 21.4 mg/dL (7-18); MAGNESIUM 2.1 mg/dL (1.8-2.4)
[2023-11-19 10:22] LABS: CREATININE 1.3 mg/dL (0.55-1.3); PHOSPHOROUS 2.9 mg/dL (2.5-4.9)
[2023-11-19 10:24] LABS: BILIRUBIN,TOTAL 0.7 mg/dL (0.2-1); TOT PROT 7.3 g/dl (6.4-8.2)
[2023-11-19] MEDS ORDERED: FUROSEMIDE 40 MG/4 ML INJECTABLE VIAL ONE (10:35)
[2023-11-19] MEDS: FUROSEMIDE 40 MG/4 ML INJECTABLE VIAL IVPUSH ONE (10:35)
[2023-11-19] MEDS: NITROGLYCERIN SUBLINGUAL 1/150 0.4 MG TAB SL ONE (11:12)
[2023-11-19] MEDS ORDERED: NITROGLYCERIN SUBLINGUAL 1/150 0.4 MG TAB ONE (11:12)
[2023-11-19] MEDS ORDERED: hydrALAZINE HCL 50 MG TABLET (FP) ONE (15:16)
[2023-11-19] MEDS ORDERED: amLODIPine BESYLATE 5 MG TABLET (FP) ONE (15:16)
[2023-11-19] MEDS: hydrALAZINE HCL 50 MG TABLET (FP) PO ONE (15:19)
[2023-11-19] MEDS: amLODIPine BESYLATE 5 MG TABLET (FP) PO ONE (15:19)
[2023-11-19] MEDS: INSULIN ASPART SLIDING SCALE (NOVOLOG) 1 VIAL SQ SCH (17:30)
[2023-11-19 20:52] VITALS: BMI 34.6
[2023-11-19] MEDS: HEPARIN NA (PORCINE) 5,000 UNITS/ML 1ML VIAL SQ SCH (22:13)
[2023-11-19] MEDS: hydrALAZINE HCL 50 MG TABLET (FP) PO SCH (22:13)
[2023-11-19] MEDS: ATORVASTATIN CA 80 MG TABLET (FP) PO SCH (22:13)
[2023-11-19] MEDS: CARVEDILOL 12.5 MG TABLET (FP) PO SCH (22:13)
[2023-11-19] MEDS: HYDROCHLOROTHIAZIDE 25 MG TABLET (FP) PO SCH (22:13)
[2023-11-20] MEDS: LEVOTHYROXINE NA 50 MCG TABLET (FP) PO SCH (06:42)
[2023-11-20] MEDS: metFORMIN HCL 500 MG TABLET (FP) PO SCH (06:42)
[2023-11-20] MEDS: sitaGLIPtin PHOSPHATE 50 MG TABLET PO SCH (06:42)
[2023-11-20 07:12] LABS: BASO % 0.2 % (0-2.0); HEMATOCRIT 28.3 % (32.4-45.2); HEMOGLOBIN 8.9 GM/dL (10.7-15.3); LYMPH % 28.9 % (8-40); MCH 22.9 pg (25.7-33.7); MCHC 31.3 g/dl (32.0-36.0); MEAN CELL VOLUME 73.2 fl (80-96); MEAN PLT VOLUME 8.2 fl (7.5-11.1); MONO % 7.1 % (3.8-10.2); NEUT % 62.8 % (42.8-82.8); PLATELET COUNT 211 10^3/uL (134-434); RBC 3.87 M/mm3 (3.60-5.2); RDW 19.1 % (11.6-15.6); WHITE BLOOD COUNT 8.9 K/mm3 (4.0-10.0)
[2023-11-20 07:31] LABS: POTASSIUM 3.8 mmol/L (3.5-5.1)
[2023-11-20 07:34] LABS: BLOOD UREA NITROGEN 23.6 mg/dL (7-18); CALCIUM 8.3 mg/dL (8.5-10.1)
[2023-11-20 07:37] LABS: CREATININE 1.6 mg/dL (0.55-1.3)
[2023-11-20 07:39] LABS: BILIRUBIN,TOTAL 0.7 mg/dL (0.2-1)
[2023-11-20 07:48] LABS: ALBUMIN 2.8 g/dl (3.4-5.0)
[2023-11-20] MEDS: FUROSEMIDE 40 MG/4 ML INJECTABLE VIAL IVPUSH SCH (09:50)
[2023-11-20] MEDS: PANTOPRAZOLE 20 MG TABLET PO SCH (09:51)
[2023-11-20] MEDS: LOSARTAN POTASSIUM 50 MG TABLET PO SCH (09:51)
[2023-11-20] MEDS: ASPIRIN 81 MG CHEWABLE TABLETS PO SCH (09:51)
[2023-11-20] MEDS: amLODIPine BESYLATE 5 MG TABLET (FP) PO SCH (09:51)
[2023-11-20] MEDS ORDERED: AMLODIPINE OLMESARTAN PO SCH (10:00)
[2023-11-21 09:06] LABS: POTASSIUM 3.8 mmol/L (3.5-5.1)
[2023-11-21 09:09] LABS: ALBUMIN 2.9 g/dl (3.4-5.0); BLOOD UREA NITROGEN 32.3 mg/dL (7-18)
[2023-11-21 09:12] LABS: CREATININE 1.8 mg/dL (0.55-1.3)
[2023-11-21 09:13] LABS: BILIRUBIN,TOTAL 0.6 mg/dL (0.2-1); TOT PROT 6.4 g/dl (6.4-8.2)
[2023-11-21] MEDS ORDERED: POLYETHYLENE GLYCOL (HEALTHYLAX) 3350 17 GM PACKET PO PRN (10:03)
[2023-11-21] MEDS: amLODIPine BESYLATE 5 MG TABLET (FP) PO ONE (10:56)
[2023-11-21] MEDS: hydrALAZINE HCL 50 MG TABLET (FP) PO ONE (10:56)
[2023-11-21] MEDS: ONDANSETRON 4 MG/2 ML VIAL IVPUSH PRN (10:56)
[2023-11-21] MEDS: CARVEDILOL 12.5 MG TABLET (FP) PO ONE (10:56)
[2023-11-21] MEDS: LOSARTAN POTASSIUM 50 MG TABLET PO ONE (13:09)
[2023-11-21] MEDS: SENNOSIDES 8.8 MG/5 ML SYRUP PO SCH (21:35)
[2023-11-22 07:48] LABS: BASO % 0.4 % (0-2.0); EOS % 2.2 % (0-4.5); HEMATOCRIT 29.2 % (32.4-45.2); HEMOGLOBIN 9.3 GM/dL (10.7-15.3); LYMPH % 24.2 % (8-40); MCH 23.4 pg (25.7-33.7); MCHC 31.7 g/dl (32.0-36.0); MEAN CELL VOLUME 73.6 fl (80-96); MEAN PLT VOLUME 9.1 fl (7.5-11.1); MONO % 6.4 % (3.8-10.2); NEUT % 66.8 % (42.8-82.8); PLATELET COUNT 243 10^3/uL (134-434); RBC 3.97 M/mm3 (3.60-5.2); RDW 18.7 % (11.6-15.6); WHITE BLOOD COUNT 8.5 K/mm3 (4.0-10.0)
[2023-11-22 08:19] LABS: POTASSIUM 4.1 mmol/L (3.5-5.1)
[2023-11-22 08:22] LABS: BLOOD UREA NITROGEN 34.5 mg/dL (7-18)
[2023-11-22 08:27] LABS: BILIRUBIN,TOTAL 0.6 mg/dL (0.2-1); TOT PROT 6.6 g/dl (6.4-8.2)
[2023-11-22 09:31] LABS: EPI CELLS >36 /uL (0-25.1); HYALINE CASTS 3 /uL (0-3.1); URINE APPEARANCE CLOUDY; URINE BILIRUBIN 2+ (NEGATIVE); URINE COLOR DK YELLOW; URINE GLUCOSE (UA) NEGATIVE (NEGATIVE); URINE KETONE TRACE (NEGATIVE); URINE LEUK ESTERASE 1+ (NEGATIVE); URINE NITRITE POSITIVE (NEGATIVE); URINE PROTEIN 2+ (NEGATIVE); URINE WBC 290 /uL (0-25.8)
[2023-11-22 11:14] LABS: URINE BACTERIA 228.9 /uL (0-1359); URINE RBC 5237.8 /uL (0-23.9)
[2023-11-22 11:20] LABS: YEAST POSITIVE (NEGATIVE)
[2023-11-22] MEDS ORDERED: SENNOSIDES 8.8 MG/5 ML SYRUP PO PRN (11:38)
[2023-11-22] MEDS: DOCUSATE SODIUM 100 MG CAPSULE (FP) PO SCH (12:21)
[2023-11-22] MEDS ORDERED: SUCRALFATE 1 GM/10 ML UNIT DOSE CUPS PO PRN (13:00)
[2023-11-23 07:38] VITALS: RESP 18; TEMP 98.2
[2023-11-23 10:29] LABS: BASO % 0.3 % (0-2.0); HEMATOCRIT 30.4 % (32.4-45.2); HEMOGLOBIN 9.5 GM/dL (10.7-15.3); LYMPH % 21.3 % (8-40); MCH 22.9 pg (25.7-33.7); MCHC 31.2 g/dl (32.0-36.0); MEAN CELL VOLUME 73.4 fl (80-96); MEAN PLT VOLUME 8.1 fl (7.5-11.1); MONO % 5.8 % (3.8-10.2); NEUT % 70.6 % (42.8-82.8); PLATELET COUNT 279 10^3/uL (134-434); RBC 4.15 M/mm3 (3.60-5.2); RDW 18.9 % (11.6-15.6); WHITE BLOOD COUNT 9.8 K/mm3 (4.0-10.0)
[2023-11-23 10:46] LABS: POTASSIUM 4.1 mmol/L (3.5-5.1)
[2023-11-23 10:49] LABS: CALCIUM 9.4 mg/dL (8.5-10.1)
[2023-11-23 10:50] LABS: ALBUMIN 3.2 g/dl (3.4-5.0); BLOOD UREA NITROGEN 37.2 mg/dL (7-18)
[2023-11-23 10:53] LABS: CREATININE 2.2 mg/dL (0.55-1.3)
[2023-11-23 10:54] LABS: BILIRUBIN,TOTAL 0.5 mg/dL (0.2-1); TOT PROT 6.9 g/dl (6.4-8.2)
[2023-11-23 14:13] VITALS: BP 139/55; PULSE 68
== END 2023-11-23 15:40 | disposition home or self-care (01) | DRG 291 ==
LOC: JER 08:52 → JERBED 10:46 → J4W 15:42
PROVIDERS: ADMIT Internal Medicine; ATTEND Internal Medicine
DX: I13.0 Hypertensive heart and chronic kidney disease with heart failure and stage 1 through stage 4 chronic kidney disease, or unspecified chronic kidney disease (principal); I50.33 Acute on chronic diastolic (congestive) heart failure; N17.9 Acute kidney failure, unspecified; G20.A1 Parkinson's disease without dyskinesia, without mention of fluctuations; K21.9 Gastro-esophageal reflux disease without esophagitis; I25.10 Atherosclerotic heart disease of native coronary artery without angina pectoris; E87.70 Fluid overload, unspecified; K76.0 Fatty (change of) liver, not elsewhere classified; E03.9 Hypothyroidism, unspecified; E11.22 Type 2 diabetes mellitus with diabetic chronic kidney disease; N18.9 Chronic kidney disease, unspecified; Z95.5 Presence of coronary angioplasty implant and graft; Z95.1 Presence of aortocoronary bypass graft
CPT/HCPCS: 0241U-QW; 36415; 71045-TC-FY; 71275-TC; 74174-TC; 80053; 80061; 81003; 82962; 83036; 83735; 83880; 84100; 84439; 84443; 84484; 85025; 85610; 85730; 86850; 86900; 86901; 93005; 93010; 93306-TC; 94761; 97116-GP; 97161-GP; 99285-25; J1644; Q9967

== ENCOUNTER 2023-12-02 05:46 | Inpatient (IN) | payer OTHER ==
[2023-12-02] MEDS ORDERED: NITROGLYCERIN 2% OINTMENT - 1GM PACKET TD ONE ×2 (07:05→07:08)
[2023-12-02] MEDS: NITROGLYCERIN 2% OINTMENT - 1GM PACKET TD ONE (07:26)
[2023-12-02 08:01] LABS: VENOUS BASE EXCESS -6.3 mmol/L (-2-2); VENOUS O2 SATURATION 81.6 % (70-80); VENOUS PCO2 50.9 mmHg (38-52); VENOUS PH 7.237 (7.310-7.410)
[2023-12-02 08:07] LABS: BASO % 0.2 % (0-2.0); EOS % 0.2 % (0-4.5); HEMATOCRIT 32.8 % (32.4-45.2); LYMPH % 7.8 % (8-40); MCH 23.1 pg (25.7-33.7); MCHC 30.6 g/dl (32.0-36.0); MEAN CELL VOLUME 75.4 fl (80-96); MEAN PLT VOLUME 9.1 fl (7.5-11.1); MONO % 6.3 % (3.8-10.2); NEUT % 85.5 % (42.8-82.8); PLATELET COUNT 297 10^3/uL (134-434); RBC 4.35 M/mm3 (3.60-5.2); RDW 19.7 % (11.6-15.6); WHITE BLOOD COUNT 18.9 K/mm3 (4.0-10.0)
[2023-12-02 08:10] LABS: INR 1.05 (0.83-1.09); PROTHROMBIN TIME (PATIENT) 12.2 SEC (9.7-13.0)
[2023-12-02 08:13] LABS: ACTIVATED PTT 21.5 SECONDS (25.2-36.5)
[2023-12-02] MEDS ORDERED: FUROSEMIDE 40 MG/4 ML INJECTABLE VIAL ONE (08:27)
[2023-12-02] MEDS: FUROSEMIDE 40 MG/4 ML INJECTABLE VIAL IVPUSH ONE (08:40)
[2023-12-02 08:48] LABS: ALBUMIN 3.5 g/dl (3.4-5.0)
[2023-12-02 08:49] LABS: BLOOD UREA NITROGEN 39.4 mg/dL (7-18)
[2023-12-02 08:52] LABS: CREATININE 1.8 mg/dL (0.55-1.3)
[2023-12-02 08:53] LABS: BILIRUBIN,TOTAL 0.7 mg/dL (0.2-1); TOT PROT 8.1 g/dl (6.4-8.2)
[2023-12-02 09:05] LABS: POTASSIUM 7.7 mmol/L (3.5-5.1)
[2023-12-02 09:19] LABS: MAGNESIUM 2.3 mg/dL (1.8-2.4)
[2023-12-02 09:27] LABS: N-TERMINAL BNP 7603.1 pg/ml (5-450)
[2023-12-02] MEDS ORDERED: ASPIRIN 81 MG CHEWABLE TABLETS ONE (09:51)
[2023-12-02] MEDS: ASPIRIN 81 MG CHEWABLE TABLETS PO ONE (09:52)
[2023-12-02 10:48] LABS: POTASSIUM 5.2 mmol/L (3.5-5.1)
[2023-12-02 10:49] LABS: CALCIUM 9.5 mg/dL (8.5-10.1)
[2023-12-02 10:51] LABS: ALBUMIN 3.6 g/dl (3.4-5.0); BLOOD UREA NITROGEN 38.2 mg/dL (7-18)
[2023-12-02 10:54] LABS: CREATININE 1.7 mg/dL (0.55-1.3)
[2023-12-02 10:55] LABS: TOT PROT 7.5 g/dl (6.4-8.2)
[2023-12-02 11:04] LABS: BILIRUBIN,TOTAL 0.5 mg/dL (0.2-1)
[2023-12-02 11:08] LABS: PH,URINE 5.5 (5.0-8.0); URINE APPEARANCE CLEAR; URINE BILIRUBIN NEGATIVE (NEGATIVE); URINE COLOR YELLOW; URINE GLUCOSE (UA) NEGATIVE (NEGATIVE); URINE KETONE NEGATIVE (NEGATIVE); URINE LEUK ESTERASE NEGATIVE (NEGATIVE); URINE NITRITE NEGATIVE (NEGATIVE); URINE PROTEIN NEGATIVE (NEGATIVE); URINE UROBILINOGEN 0.2 mg/dL (0.2-1.0)
[2023-12-02] MEDS ORDERED: VANCOMYCIN 1 GRAM (PRE-DOCKED) 1,000 MG/250 ML BAG IVPB ONE (11:22)
[2023-12-02] MEDS ORDERED: CEFEPIME 2 GM/100 ML BAG IVPB ONE (11:23)
[2023-12-02] MEDS: CEFEPIME 2 GM in DEXTROSE 5%-WATER 100 ML IVPB ONE (11:27)
[2023-12-02] MEDS ORDERED: HEPARIN NA (PORCINE) 5,000 UNITS/ML 1ML VIAL IVPUSH PRN ×2 (11:53→11:55)
[2023-12-02] MEDS: VANCOMYCIN 1,000 MG in DEXTROSE 5%-WATER - 250 ML IVPB ONE (11:54)
[2023-12-02] MEDS ORDERED: HEPARIN INFUSION - 25,000 UNITS/500 ML INFUS.BAG IVPB ONE (12:21)
[2023-12-02] MEDS ORDERED: HEPARIN NA (PORCINE) 5,000 UNITS/ML 1ML VIAL ONE (12:21)
[2023-12-02] MEDS: HEPARIN NA (PORCINE) 5,000 UNITS/ML 1ML VIAL IVPUSH ONE (12:56)
[2023-12-02] MEDS: HEPARIN INFUSION - 25,000 UNITS/500 ML INFUS.BAG IVPB SCH (12:56)
[2023-12-02] MEDS ORDERED: amLODIPine BESYLATE 5 MG TABLET (FP) ONE (13:31)
[2023-12-02] MEDS ORDERED: ASPIRIN COATED 81 MG TABLET.EC ONE (13:31)
[2023-12-02] MEDS ORDERED: FUROSEMIDE 40 MG TABLET (FP) ONE (13:31)
[2023-12-02] MEDS ORDERED: CARVEDILOL 12.5 MG TABLET (FP) ONE (13:32)
[2023-12-02] MEDS ORDERED: ATORVASTATIN CA 80 MG TABLET (FP) ONE ×2 (13:32→22:21)
[2023-12-02] MEDS: CARVEDILOL 12.5 MG TABLET (FP) PO SCH (13:41)
[2023-12-02] MEDS: amLODIPine BESYLATE 5 MG TABLET (FP) PO SCH (13:41)
[2023-12-02] MEDS: ATORVASTATIN CA 80 MG TABLET (FP) PO SCH (13:41)
[2023-12-02] MEDS: FUROSEMIDE 40 MG TABLET (FP) PO SCH (13:42)
[2023-12-02] MEDS ORDERED: ACETAMINOPHEN INJECTION 100 ML IVPB ONE (22:21)
[2023-12-02] MEDS ORDERED: DOCUSATE SODIUM 100 MG CAPSULE (FP) PO ONE (22:21)
[2023-12-02] MEDS: ACETAMINOPHEN 1000 MG/100 ML BAG IVPB ONE (22:30)
[2023-12-02] MEDS: DOCUSATE SODIUM 100 MG CAPSULE (FP) PO SCH (22:31)
[2023-12-03] MEDS ORDERED: ACETAMINOPHEN 1000 MG/100 ML BAG IVPB PRN (04:00)
[2023-12-03] MEDS ORDERED: LEVOTHYROXINE NA 50 MCG TABLET (FP) ONE (07:31)
[2023-12-03] MEDS ORDERED: sitaGLIPtin PHOSPHATE 50 MG TABLET ONE (07:31)
[2023-12-03] MEDS: LEVOTHYROXINE NA 50 MCG TABLET (FP) PO SCH (07:34)
[2023-12-03] MEDS: sitaGLIPtin PHOSPHATE 50 MG TABLET PO SCH (07:34)
[2023-12-03 07:52] LABS: BASO % 0.4 % (0-2.0); EOS % 2.8 % (0-4.5); HEMATOCRIT 27.6 % (32.4-45.2); HEMOGLOBIN 8.5 GM/dL (10.7-15.3); LYMPH % 35.7 % (8-40); MCH 23.3 pg (25.7-33.7); MCHC 30.9 g/dl (32.0-36.0); MEAN CELL VOLUME 75.2 fl (80-96); MEAN PLT VOLUME 8.4 fl (7.5-11.1); MONO % 6.7 % (3.8-10.2); NEUT % 54.4 % (42.8-82.8); PLATELET COUNT 202 10^3/uL (134-434); RBC 3.67 M/mm3 (3.60-5.2); RDW 19.2 % (11.6-15.6)
[2023-12-03 07:56] LABS: INR 1.27 (0.83-1.09); PROTHROMBIN TIME (PATIENT) 14.7 SEC (9.7-13.0)
[2023-12-03 08:46] LABS: ALBUMIN 2.8 g/dl (3.4-5.0); BILIRUBIN,TOTAL 0.5 mg/dL (0.2-1); BLOOD UREA NITROGEN 35.4 mg/dL (7-18); CALCIUM 8.8 mg/dL (8.5-10.1); CREATININE 1.8 mg/dL (0.55-1.3); PHOSPHOROUS 3.5 mg/dL (2.5-4.9); POTASSIUM 4.5 mmol/L (3.5-5.1)
[2023-12-03] MEDS ORDERED: CARVEDILOL 25 MG TABLET (FP) ONE (10:41)
[2023-12-03] MEDS ORDERED: FUROSEMIDE 40 MG TABLET (FP) ONE (10:41)
[2023-12-03] MEDS ORDERED: ASPIRIN 81 MG CHEWABLE TABLETS ONE (10:41)
[2023-12-03] MEDS ORDERED: amLODIPine BESYLATE 5 MG TABLET (FP) ONE (10:41)
[2023-12-03] MEDS ORDERED: DOCUSATE SODIUM 100 MG CAPSULE (FP) PO ONE (10:41)
[2023-12-03] MEDS ORDERED: ISOSORBIDE MONONITRATE 30 MG TAB.SR.24H (FP) PO ONE (10:42)
[2023-12-03] MEDS ORDERED: hydrALAZINE HCL 50 MG TABLET (FP) ONE (10:42)
[2023-12-03] MEDS: ISOSORBIDE MONONITRATE 30 MG TAB.SR.24H (FP) PO SCH (10:48)
[2023-12-03] MEDS: ASPIRIN COATED 81 MG TABLET.EC PO SCH (10:48)
[2023-12-03] MEDS: hydrALAZINE HCL 50 MG TABLET (FP) PO SCH (10:48)
[2023-12-03 17:25] VITALS: BMI 32.7
[2023-12-04] MEDS ORDERED: FAMOTIDINE 20 MG TABLET PO PRN (12:57)
[2023-12-04 13:13] LABS: BASO % 0.2 % (0-2.0); EOS % 2.4 % (0-4.5); HEMATOCRIT 28.4 % (32.4-45.2); LYMPH % 22.6 % (8-40); MCH 23.2 pg (25.7-33.7); MCHC 31.5 g/dl (32.0-36.0); MEAN CELL VOLUME 73.6 fl (80-96); MEAN PLT VOLUME 8.6 fl (7.5-11.1); MONO % 7.8 % (3.8-10.2); PLATELET COUNT 241 10^3/uL (134-434); RBC 3.85 M/mm3 (3.60-5.2); RDW 19.5 % (11.6-15.6); WHITE BLOOD COUNT 9.4 K/mm3 (4.0-10.0)
[2023-12-04 13:50] LABS: POTASSIUM 4.1 mmol/L (3.5-5.1)
[2023-12-04 13:56] LABS: CALCIUM 9.1 mg/dL (8.5-10.1)
[2023-12-04 13:57] LABS: ALBUMIN 2.9 g/dl (3.4-5.0)
[2023-12-04 13:58] LABS: BLOOD UREA NITROGEN 33.4 mg/dL (7-18)
[2023-12-04 14:00] LABS: BILIRUBIN,TOTAL 0.4 mg/dL (0.2-1); CREATININE 1.7 mg/dL (0.55-1.3)
[2023-12-04 14:02] LABS: TOT PROT 6.2 g/dl (6.4-8.2)
[2023-12-04] MEDS: MAG HYDROX/AL HYDROX/SIMETH -MYLANTA- ORAL SUSPENSION PO PRN (18:38)
[2023-12-05] MEDS: PANTOPRAZOLE SODIUM 40 MG VIAL IVPUSH SCH (15:45)
[2023-12-06] MEDS ORDERED: REGADENOSON 0.4 MG/5 ML PRE-FILLED SYRINGE IVPUSH ONE (09:21)
[2023-12-06] MEDS: REGADENOSON 0.4 MG/5 ML PRE-FILLED SYRINGE IVPUSH ONE (11:35)
[2023-12-07 07:22] LABS: BASO % 0.1 % (0-2.0); EOS % 3.5 % (0-4.5); HEMATOCRIT 30.4 % (32.4-45.2); HEMOGLOBIN 9.4 GM/dL (10.7-15.3); LYMPH % 26.2 % (8-40); MCH 23.1 pg (25.7-33.7); MEAN CELL VOLUME 74.4 fl (80-96); MEAN PLT VOLUME 8.4 fl (7.5-11.1); NEUT % 63.2 % (42.8-82.8); PLATELET COUNT 243 10^3/uL (134-434); RBC 4.08 M/mm3 (3.60-5.2); RDW 19.4 % (11.6-15.6); WHITE BLOOD COUNT 9.3 K/mm3 (4.0-10.0)
[2023-12-07 07:36] LABS: POTASSIUM 4.5 mmol/L (3.5-5.1)
[2023-12-07 07:39] LABS: CALCIUM 9.1 mg/dL (8.5-10.1)
[2023-12-07 07:40] LABS: ALBUMIN 3.2 g/dl (3.4-5.0); BLOOD UREA NITROGEN 36.6 mg/dL (7-18)
[2023-12-07 07:43] LABS: CREATININE 1.9 mg/dL (0.55-1.3)
[2023-12-07 07:44] LABS: BILIRUBIN,TOTAL 0.5 mg/dL (0.2-1)
[2023-12-07 07:45] LABS: TOT PROT 6.6 g/dl (6.4-8.2)
[2023-12-07 14:20] VITALS: BP 158/62; PULSE 71; RESP 18; TEMP 97.6
== END 2023-12-07 15:32 | disposition home or self-care (01) | DRG 280 ==
LOC: JER 05:46 → JERBED 14:20 → J4S 12-03 14:56
PROVIDERS: ADMIT Internal Medicine; ATTEND Internal Medicine
DX: I13.0 Hypertensive heart and chronic kidney disease with heart failure and stage 1 through stage 4 chronic kidney disease, or unspecified chronic kidney disease (principal); I50.33 Acute on chronic diastolic (congestive) heart failure; I21.4 Non-ST elevation (NSTEMI) myocardial infarction; J96.01 Acute respiratory failure with hypoxia; J96.02 Acute respiratory failure with hypercapnia; I16.1 Hypertensive emergency; N17.9 Acute kidney failure, unspecified; E11.22 Type 2 diabetes mellitus with diabetic chronic kidney disease; E03.9 Hypothyroidism, unspecified; K21.9 Gastro-esophageal reflux disease without esophagitis; E78.00 Pure hypercholesterolemia, unspecified; I25.10 Atherosclerotic heart disease of native coronary artery without angina pectoris; E87.5 Hyperkalemia; N18.9 Chronic kidney disease, unspecified; K76.0 Fatty (change of) liver, not elsewhere classified
CPT/HCPCS: 0241U-QW; 36415; 71045-TC-FY; 71046-TC-FY; 78452-TC; 80053; 81003; 82550; 82553; 82803; 82962; 83605; 83735; 83880; 84100; 84484; 85025; 85610; 85730; 86850; 86900; 86901; 87040; 87086; 93005; 93010; 93017; 93975; 94660; 94761; 99291; A9502; J0131; J1644; J2785

== ENCOUNTER 2024-01-17 00:19 | Inpatient (IN) | payer OTHER ==
[2024-01-17] MEDS ORDERED: ALBUTEROL SO4 2.5/IPRATROPIUM 0.5 INH SOL 3 ML VIAL.NEB. NEB ONE (01:27)
[2024-01-17 01:31] LABS: VENOUS BASE EXCESS -0.6 mmol/L (-2-2); VENOUS PCO2 44.5 mmHg (38-52); VENOUS PH 7.365 (7.310-7.410)
[2024-01-17 01:34] LABS: BASO % 0.1 % (0-2.0); EOS % 0.4 % (0-4.5); HEMATOCRIT 27.5 % (32.4-45.2); HEMOGLOBIN 8.7 GM/dL (10.7-15.3); LYMPH % 8.2 % (8-40); MCHC 31.8 g/dl (32.0-36.0); MEAN CELL VOLUME 72.5 fl (80-96); MONO % 2.6 % (3.8-10.2); NEUT % 88.7 % (42.8-82.8); PLATELET COUNT 216 10^3/uL (134-434); RBC 3.79 M/mm3 (3.60-5.2); RDW 18.8 % (11.6-15.6); WHITE BLOOD COUNT 14.4 K/mm3 (4.0-10.0)
[2024-01-17] MEDS: ALBUTEROL SO4 2.5/IPRATROPIUM 0.5 INH SOL 3 ML VIAL.NEB. NEB SCH (01:34)
[2024-01-17 01:47] LABS: INR 1.1 (0.83-1.09); PROTHROMBIN TIME (PATIENT) 12.4 SEC (9.7-13.0)
[2024-01-17 01:49] LABS: ACTIVATED PTT 25.3 SECONDS (25.2-36.5)
[2024-01-17 02:08] LABS: CHLORIDE 102 mmol/L (98-107); POTASSIUM 4.7 mmol/L (3.5-5.1); SODIUM 136 mmol/L (136-145)
[2024-01-17 02:11] LABS: ALBUMIN 3.6 g/dl (3.4-5.0); ANION GAP 6 mmol/L (4-13); BLOOD UREA NITROGEN 34.9 mg/dL (7-18); CO2 28 mmol/L (21-32); GLUCOSE,RANDOM 195 mg/dL (74-106); MAGNESIUM 2.2 mg/dL (1.8-2.4)
[2024-01-17 02:14] LABS: CREATININE 1.8 mg/dL (0.55-1.3); SGOT/AST 28 U/L (15-37); SGPT/ALT 19 U/L (13-61)
[2024-01-17 02:16] LABS: BILIRUBIN,TOTAL 1.2 mg/dL (0.2-1); TOT PROT 7.2 g/dl (6.4-8.2)
[2024-01-17 02:17] LABS: ALK PHOS 92 U/L (45-117)
[2024-01-17 02:19] LABS: N-TERMINAL BNP 14179.8 pg/ml (5-450)
[2024-01-17] MEDS ORDERED: CEFTRIAXONE 1 GM/50 ML BAG ONE (03:12)
[2024-01-17] MEDS ORDERED: FUROSEMIDE 40 MG/4 ML INJECTABLE VIAL ONE (03:12)
[2024-01-17] MEDS: CEFTRIAXONE 1,000 MG in DEXTROSE 5%-WATER - 50 ML IVPB ONE (03:12)
[2024-01-17] MEDS: FUROSEMIDE 40 MG/4 ML INJECTABLE VIAL IVPUSH ONE (03:25)
[2024-01-17] MEDS: AZITHROMYCIN IVPB 500 MG in DEXTROSE 5%-WATER - 250 ML IVPB ONE (03:45)
[2024-01-17] MEDS ORDERED: AZITHROMYCIN IVPB 500 MG/250 ML BAG IVPB ONE (03:51)
[2024-01-17] MEDS ORDERED: POLYETHYLENE GLYCOL (HEALTHYLAX) 3350 17 GM PACKET PO PRN (04:58)
[2024-01-17] MEDS ORDERED: HEPARIN NA (PORCINE) 5,000 UNITS/ML 1ML VIAL ONE (05:42)
[2024-01-17] MEDS: HEPARIN NA (PORCINE) 5,000 UNITS/ML 1ML VIAL SQ SCH (05:57)
[2024-01-17 06:24] LABS: HEMATOCRIT 29.5 % (32.4-45.2); HEMOGLOBIN 9.2 GM/dL (10.7-15.3); MCH 22.9 pg (25.7-33.7); MCHC 31.3 g/dl (32.0-36.0); MEAN CELL VOLUME 73.1 fl (80-96); MEAN PLT VOLUME 8.6 fl (7.5-11.1); PLATELET COUNT 198 10^3/uL (134-434); RBC 4.03 M/mm3 (3.60-5.2); RDW 18.9 % (11.6-15.6); WHITE BLOOD COUNT 6.4 K/mm3 (4.0-10.0)
[2024-01-17 06:39] LABS: POTASSIUM 4.5 mmol/L (3.5-5.1)
[2024-01-17 06:43] LABS: ALBUMIN 3.7 g/dl (3.4-5.0); BLOOD UREA NITROGEN 36.6 mg/dL (7-18); MAGNESIUM 2.3 mg/dL (1.8-2.4)
[2024-01-17 06:45] LABS: IRON SERUM 20 ug/dL (50-175); TOTAL IRON BINDING CAPACITY 319 ug/dL (250-450)
[2024-01-17 06:46] LABS: CREATININE 1.9 mg/dL (0.55-1.3); PHOSPHOROUS 2.9 mg/dL (2.5-4.9)
[2024-01-17 06:47] LABS: TOT PROT 7.5 g/dl (6.4-8.2)
[2024-01-17] MEDS ORDERED: INSULIN (NOVOLOG) ASPART 100 UNITS/ML 10ML VIAL ONE ×3 (09:59→16:20)
[2024-01-17] MEDS: INSULIN ASPART SLIDING SCALE (NOVOLOG) 1 VIAL SQ SCH (10:02)
[2024-01-17] MEDS: CARVEDILOL 12.5 MG TABLET (FP) PO SCH (10:05)
[2024-01-17] MEDS: LEVOTHYROXINE NA 50 MCG TABLET (FP) PO SCH (10:05)
[2024-01-17] MEDS: FUROSEMIDE 40 MG/4 ML INJECTABLE VIAL IVPUSH SCH (10:05)
[2024-01-17] MEDS: PARoxetine HCL 10 MG TABLET PO SCH (10:05)
[2024-01-17] MEDS: ASPIRIN COATED 81 MG TABLET.EC PO SCH (10:05)
[2024-01-17] MEDS: DOCUSATE SODIUM 100 MG CAPSULE (FP) PO SCH (10:06)
[2024-01-17] MEDS: hydrALAZINE HCL 50 MG TABLET (FP) PO SCH (10:06)
[2024-01-17] MEDS: ISOSORBIDE MONONITRATE 30 MG TAB.SR.24H (FP) PO SCH (10:06)
[2024-01-17 16:50] LABS: URINE APPEARANCE CLEAR; URINE BILIRUBIN NEGATIVE (NEGATIVE); URINE COLOR YELLOW; URINE GLUCOSE (UA) NEGATIVE (NEGATIVE); URINE KETONE NEGATIVE (NEGATIVE); URINE LEUK ESTERASE NEGATIVE (NEGATIVE); URINE NITRITE NEGATIVE (NEGATIVE); URINE PROTEIN NEGATIVE (NEGATIVE); URINE UROBILINOGEN 0.2 mg/dL (0.2-1.0)
[2024-01-17] MEDS: ATORVASTATIN CA 80 MG TABLET (FP) PO SCH (22:01)
[2024-01-18 08:24] LABS: CALCIUM 8.9 mg/dL (8.5-10.1)
[2024-01-18 08:27] LABS: BLOOD UREA NITROGEN 40.8 mg/dL (7-18)
[2024-01-18 08:28] LABS: CREATININE 1.8 mg/dL (0.55-1.3)
[2024-01-18] MEDS: TAMSULOSIN HCL 0.4 MG CAP PO SCH (10:51)
[2024-01-18] MEDS: hydrALAZINE HCL 10 MG TABLET PO PRN (19:05)
[2024-01-19 08:29] LABS: POTASSIUM 3.4 mmol/L (3.5-5.1)
[2024-01-19 08:33] LABS: CALCIUM 8.8 mg/dL (8.5-10.1)
[2024-01-19 08:37] LABS: BLOOD UREA NITROGEN 46.2 mg/dL (7-18); CREATININE 1.9 mg/dL (0.55-1.3)
[2024-01-19] MEDS: POTASSIUM CHLORIDE ORAL LIQUID 20 MEQ/15 ML PO ONE (10:09)
[2024-01-20] MEDS ORDERED: POLYETHYLENE GLYCOL (HEALTHYLAX) 3350 17 GM PACKET PO PRN (17:43)
[2024-01-20] MEDS ORDERED: FUROSEMIDE 40 MG/4 ML INJECTABLE VIAL IVPUSH SCH (18:00)
[2024-01-20] MEDS: FUROSEMIDE 40 MG/4 ML INJECTABLE VIAL IVPUSH SCH (18:04)
[2024-01-20] MEDS: hydrALAZINE HCL 10 MG TABLET PO PRN (18:04)
[2024-01-20] MEDS: DOCUSATE SODIUM 100 MG CAPSULE (FP) PO SCH (22:22)
[2024-01-20] MEDS: CARVEDILOL 12.5 MG TABLET (FP) PO SCH (22:22)
[2024-01-20] MEDS: HEPARIN NA (PORCINE) 5,000 UNITS/ML 1ML VIAL SQ SCH (22:22)
[2024-01-20] MEDS: ATORVASTATIN CA 80 MG TABLET (FP) PO SCH (22:22)
[2024-01-20] MEDS: INSULIN ASPART SLIDING SCALE (NOVOLOG) 1 VIAL SQ SCH (22:34)
[2024-01-20] MEDS: hydrALAZINE HCL 50 MG TABLET (FP) PO SCH (22:46)
[2024-01-21] MEDS: LEVOTHYROXINE NA 50 MCG TABLET (FP) PO SCH (06:10)
[2024-01-21 07:32] LABS: BASO % 0.2 % (0-2.0); EOS % 1.6 % (0-4.5); LYMPH % 24.4 % (8-40); MCH 22.7 pg (25.7-33.7); MCHC 31.2 g/dl (32.0-36.0); MEAN CELL VOLUME 72.7 fl (80-96); MEAN PLT VOLUME 8.1 fl (7.5-11.1); MONO % 7.7 % (3.8-10.2); NEUT % 66.1 % (42.8-82.8); PLATELET COUNT 207 10^3/uL (134-434); RBC 3.99 M/mm3 (3.60-5.2); RDW 18.6 % (11.6-15.6); WHITE BLOOD COUNT 7.5 K/mm3 (4.0-10.0)
[2024-01-21] MEDS: ASPIRIN COATED 81 MG TABLET.EC PO SCH (10:45)
[2024-01-21] MEDS: TAMSULOSIN HCL 0.4 MG CAP PO SCH (10:45)
[2024-01-21] MEDS: PARoxetine HCL 10 MG TABLET PO SCH (10:46)
[2024-01-21] MEDS: ISOSORBIDE MONONITRATE 30 MG TAB.SR.24H (FP) PO SCH (10:46)
[2024-01-21 12:28] LABS: POTASSIUM 3.7 mmol/L (3.5-5.1)
[2024-01-21 12:31] LABS: BLOOD UREA NITROGEN 38.6 mg/dL (7-18); CALCIUM 9.3 mg/dL (8.5-10.1)
[2024-01-21 12:35] LABS: CREATININE 1.8 mg/dL (0.55-1.3)
[2024-01-21] MEDS: MAG HYDROX/AL HYDROX/SIMETH 30 ML UNIT-DOSE CUP PO ONE (20:19)
[2024-01-21 20:40] LABS: POTASSIUM 3.5 mmol/L (3.5-5.1)
[2024-01-21 20:43] LABS: ALBUMIN 3.3 g/dl (3.4-5.0); BLOOD UREA NITROGEN 36.3 mg/dL (7-18); CALCIUM 9.2 mg/dL (8.5-10.1)
[2024-01-21 20:46] LABS: CREATININE 1.8 mg/dL (0.55-1.3)
[2024-01-21 20:48] LABS: BILIRUBIN,TOTAL 0.7 mg/dL (0.2-1); TOT PROT 6.7 g/dl (6.4-8.2)
[2024-01-22] MEDS: TORSEMIDE 20 MG TABLET (FP) PO SCH (10:22)
[2024-01-22] MEDS: POLYETHYLENE GLYCOL (HEALTHYLAX) 3350 17 GM PACKET PO SCH (21:33)
[2024-01-23 17:13] VITALS: RESP 18; TEMP 98.4
[2024-01-23 18:05] VITALS: BP 148/56; PULSE 62
[2024-01-24 08:55] VITALS: BMI 28.5
== END 2024-01-23 19:14 | disposition home or self-care (01) | DRG 291 ==
LOC: JER 00:19 → JERBED 03:05 → J4W 06:31 → J7W 01-20 17:53
PROVIDERS: ADMIT Student in an Organized Health Care Education/Training Program; ATTEND Internal Medicine
DX: I13.0 Hypertensive heart and chronic kidney disease with heart failure and stage 1 through stage 4 chronic kidney disease, or unspecified chronic kidney disease (principal); I50.33 Acute on chronic diastolic (congestive) heart failure; I24.89 Other forms of acute ischemic heart disease; E11.22 Type 2 diabetes mellitus with diabetic chronic kidney disease; N18.9 Chronic kidney disease, unspecified; E78.5 Hyperlipidemia, unspecified; E03.9 Hypothyroidism, unspecified; R29.6 Repeated falls; F41.9 Anxiety disorder, unspecified; M35.3 Polymyalgia rheumatica; D63.1 Anemia in chronic kidney disease; K76.0 Fatty (change of) liver, not elsewhere classified; K21.9 Gastro-esophageal reflux disease without esophagitis; I25.10 Atherosclerotic heart disease of native coronary artery without angina pectoris; Z95.5 Presence of coronary angioplasty implant and graft; Z85.43 Personal history of malignant neoplasm of ovary
CPT/HCPCS: 0241U-QW; 36415; 71045-TC-FY; 71250-TC; 80048; 80053; 81003; 82550; 82803; 82962; 83540; 83550; 83735; 83880; 84100; 84484; 85025; 85027; 85045; 85610; 85730; 87040; 87086; 93005; 93010; 94761; 97116-GP; 97163-GP; 99285-25; J1644

== ENCOUNTER 2024-02-14 15:30 | Emergency (ER) | payer OTHER ==
[2024-02-14 15:35] VITALS: RESP 18; TEMP 98.4; BMI 30.2
[2024-02-14] MEDS ORDERED: DEXAMETHASONE SOD PHOSPHATE 10 MG/1 ML VIAL ONE (16:42)
[2024-02-14] MEDS ORDERED: ONDANSETRON 4 MG/2 ML VIAL ONE (16:42)
[2024-02-14 18:10] LABS: BASO % 0.1 % (0-2.0); EOS % 0.2 % (0-4.5); HEMATOCRIT 26.6 % (32.4-45.2); HEMOGLOBIN 8.2 GM/dL (10.7-15.3); LYMPH % 7.8 % (8-40); MCHC 30.9 g/dl (32.0-36.0); MEAN CELL VOLUME 71.3 fl (80-96); MEAN PLT VOLUME 8.6 fl (7.5-11.1); MONO % 4.9 % (3.8-10.2); PLATELET COUNT 217 10^3/uL (134-434); RBC 3.74 M/mm3 (3.60-5.2); RDW 19.3 % (11.6-15.6); WHITE BLOOD COUNT 19.5 K/mm3 (4.0-10.0)
[2024-02-14] MEDS: DEXAMETHASONE SOD PHOSPHATE 10 MG/1 ML VIAL IVPUSH ONE (18:13)
[2024-02-14] MEDS: ONDANSETRON 4 MG/2 ML VIAL IVPUSH ONE (18:13)
[2024-02-14] MEDS ORDERED: ACETAMINOPHEN INJECTION 100 ML IVPB ONE (18:16)
[2024-02-14 18:25] LABS: POTASSIUM 4.3 mmol/L (3.5-5.1)
[2024-02-14 18:27] LABS: ALBUMIN 3.4 g/dl (3.4-5.0); BLOOD UREA NITROGEN 39.3 mg/dL (7-18); CALCIUM 8.9 mg/dL (8.5-10.1)
[2024-02-14 18:27] LABS: INR 1.13 (0.83-1.09); PROTHROMBIN TIME (PATIENT) 12.7 SEC (9.7-13.0)
[2024-02-14] MEDS: ACETAMINOPHEN 1000 MG/100 ML BAG IVPB ONE (18:27)
[2024-02-14] MEDS: SODIUM CHLORIDE 0.9% 500 ML INFUS.BAG IV ONE (18:27)
[2024-02-14 18:29] LABS: ACTIVATED PTT 31.3 SECONDS (25.2-36.5)
[2024-02-14 18:30] LABS: CREATININE 2.2 mg/dL (0.55-1.3)
[2024-02-14 18:32] LABS: THROAT:GRP A STREP NOT DETECTED (NOTDETECTED)
[2024-02-14 18:32] LABS: TOT PROT 7.1 g/dl (6.4-8.2)
[2024-02-14] MEDS ORDERED: VANCOMYCIN 1 GRAM (PRE-DOCKED) 1,000 MG/250 ML BAG IVPB ONE (19:10)
[2024-02-14] MEDS ORDERED: CEFEPIME 1 GM/100 ML BAG IVPB ONE (19:11)
[2024-02-14 19:48] LABS: ANISOCYTOSIS 3+; MACROCYTOSIS 1+
[2024-02-14 19:53] LABS: ERYTHROCYTE SEDIMENTATION RATE 72 mm/hr (0-30)
[2024-02-14] MEDS ORDERED: ANAPHYLAXIS KIT ONE (20:06)
[2024-02-14] MEDS: VANCOMYCIN 1 GM PREMIX - 1 GM/200 ML BAG IVPB ONE (20:15)
[2024-02-14] MEDS: CEFEPIME HCL/D5W 1 GM/50 ML BAG IVPB ONE (20:15)
[2024-02-14 21:55] VITALS: BP 138/67; PULSE 74
== END 2024-02-15 00:08 | disposition short-term general hospital (02) ==
LOC: JER 15:30
PROC: 3E03329 Introduction of Other Anti-infective into Peripheral Vein, Percutaneous Approach (ICD-10-PCS; principal; 2024-02-14)
PROC: 3E03329 Introduction of Other Anti-infective into Peripheral Vein, Percutaneous Approach (ICD-10-PCS; 2024-02-14)
PROC: 3E033NZ Introduction of Analgesics, Hypnotics, Sedatives into Peripheral Vein, Percutaneous Approach (ICD-10-PCS; 2024-02-14)
PROC: 3E033GC Introduction of Other Therapeutic Substance into Peripheral Vein, Percutaneous Approach (ICD-10-PCS; 2024-02-14)
PROC: 3E033GC Introduction of Other Therapeutic Substance into Peripheral Vein, Percutaneous Approach (ICD-10-PCS; 2024-02-14)
DX: N17.9 Acute kidney failure, unspecified (principal); K11.20 Sialoadenitis, unspecified; J18.9 Pneumonia, unspecified organism; D72.829 Elevated white blood cell count, unspecified; I44.0 Atrioventricular block, first degree; R22.1 Localized swelling, mass and lump, neck; J02.9 Acute pharyngitis, unspecified; R11.2 Nausea with vomiting, unspecified; Z20.822 Contact with and (suspected) exposure to COVID-19
CPT/HCPCS: 0241U-QW; 36415; 70490-TC; 71045-TC-FY; 80053; 83605; 84443; 85025; 85610; 85651; 85730; 86140; 86850; 86900; 86901; 87040; 87651; 93005; 93010; 99285-25; J0131; J1100